=== PATIENT | female | born 1990 | race Caucasian/White ===

== ENCOUNTER 2024-06-11 18:45 | Emergency (ER) | payer OTHER, SELFPAY ==
[2024-06-11] VITALS (13 sets, daily range): BP systolic 122–155; BP diastolic 53–86; PULSE 59–91; RESP 18; TEMP 37.1; O2SAT 85–100; BMI 25.0
[2024-06-11] MEDS: ONDANSETRON 4 MG/2 ML INJ IV (19:31)
[2024-06-11 19:35] LABS: Add Manual Diff / Slide Review NO; Basophils Absolute Auto 0 /uL (0-100); Basophils Percent Auto 0.8 % (0-2); Eosinophils Absolute Auto 200 /uL (0-450); Eosinophils Percent Auto 6.3 % (2-4); Hematocrit 25.3 % (36-46); Hemoglobin 7.7 g/dL (12.0-16.0); Lymphocytes Absolute Auto 1500 /uL (1100-4500); Lymphocytes Percent Auto 42.2 % (25-40); Mean Corpuscular HGB Conc 30.3 % (30-36); Mean Corpuscular Hemoglobin 20.4 PG (26-34); Mean Corpuscular Volume 67.4 fL (80-100); Monocytes Absolute Auto 300 /uL (0-900); Monocytes Percent Auto 7.4 % (3-14); Neutrophils Absolute Auto 1600 /uL (1500-7000); Neutrophils Percent Auto 43.3 % (50-75); Platelet Count 347 X10^3/uL (150-400); Red Blood Cell Count 3.75 X10^6/uL (4.0-5.2); Red Cell Distribution Width 18.5 % (11.6-14.8); White Blood Cell Count 3.6 X10^3/uL (4.5-11.0)
--- NOTE | 2024-06-11 19:37 | PC.NURSE ---
Pt states she does not take anything for bowel regulation. Today for the upset stomach pt had pepto around 2 pm. No relief. Pt states she tries to do all natural.
[2024-06-11 19:46] LABS: Alanine Aminotransferase 13 IU/L (<35); Albumin 3.8 g/dL (3.5-5.0); Albumin Globulin Ratio 1.4 (1.0-2.8); Alkaline Phosphatase 80 U/L (38-126); Aspartate Aminotransferase 25 IU/L (14-36); BUN Creatinine Ratio 32.6 (6-22); Bilirubin Total 0.4 mg/dL (0.2-1.3); Blood Urea Nitrogen 14 mg/dL (7-17); Calcium 8.3 mg/dL (8.4-10.2); Carbon Dioxide 24 mmol/L (22-32); Chloride 109 mmol/L (98-107); Estimated Glomerular Filt Rate > 60 mL/min (>60); Globulin 2.8 g/dL (1.7-4.1); Glucose 96 mg/dL (70-100); HEMOLYSIS < 15 (0-50); Lipase 37 U/L (23-300); Potassium 3.8 mmol/L (3.4-5.1); Sodium 138 mmol/L (137-145); Total Protein 6.6 g/dL (6.3-8.2)
[2024-06-11 19:58] LABS: Anisocytosis 1+; Hypochromasia 2+; Microcytosis 3+
[2024-06-11 19:59] LABS: Rouleaux 1+; Target Cells 1+
--- NOTE | 2024-06-11 20:20 | ED_ITS ---
HPI - Abdominal Pain General Chief Complaint: Abdominal Pain Stated Complaint: abd px, prior bowel obstruction surgeries Time Seen by Provider: 06/11/24 19:47 Source: patient Mode of arrival: Ambulatory History of Present Illness HPI narrative: 34-year-old female complains of central abdominal pain for the last 2 days, last bowel movement 2 days ago. No black or red stools. History of prior bowel obstructions. She believes she had bowel obstruction 2020 diagnosed at [facility], some surgical resection, unclear diagnosis, does not think it was Crohn's disease, no cancers. 2021 had bowel surgery 2 [facility]. 2022 had another bowel surgery to [facility]. She has also had gastric bypass surgery 2014 for with [place]. Abdominoplasty surgery [facility] subsequent to that. She still has her gallbladder and has still has her appendix, has her ovaries and uterus. She believes that she has 2 ft of bowel remaining, no colostomy. She has had nausea and retching, no emesis. No black or red stools. She denies painful urination or frequency of urination. No history of prior kidney stones. No vaginal bleeding. She does recall having history of anemia with hemoglobin down to 4 in the past, has had transfusions in the past, unclear if this is related to GI losses or vaginal bleeding, she has had prior remote transfusion when her hemoglobin is less than 7. No recent injury or trauma or new activities. No recent exposure to antibiotics. No recent personal travel. Related Data Previous Rx's Medication Instructions Recorded omeprazole 20 mg capsule,delayed 20 mg PO DAILY upper abdominal 06/11/24 release pain 30 days #30 caps oxycodone-acetaminophen 5 mg-325 1 tab PO Q6H PRN pain #15 tabs 06/11/24 mg tablet Allergies Allergy/AdvReac Type Severity Reaction Status Date / Time fentanyl AdvReac Unknown Verified 06/11/24 22:06 hydromorphone [From Dilaudid] AdvReac Unknown Verified 06/11/24 22:06 Review of Systems Review of Systems Narrative: see HPI Patient History Social History Smoking Status: Current every day smoker Smoking Status: Current every day smoker tobacco type: cigarettes alcohol intake frequency: a few times a week Substance Use Type: former substance user Exam Narrative Exam Narrative: GENERAL: Well-developed patient, in mild distress. HEAD: Atraumatic. Normocephalic. EYES: Pupils equal round and reactive. Extraocular motions intact. No scleral icterus. No injection or drainage. ENT: Nose without bleeding, purulent drainage. Throat without erythema, tonsillar hypertrophy or exudate. Airway patent. NECK: Trachea midline. Non tender CARDIOVASCULAR: Regular rate and rhythm without murmurs, gallops, or rubs. RESPIRATORY: Clear to auscultation. Breath sounds equal bilaterally. No wheezes, rales, or rhonchi. GASTROINTESTINAL: Well-healed scars, nondistended, no obvious incisional hernia. Some periumbilical tenderness, right lower quadrant tenderness, no guarding or rebound. EXTREMITIES: No edema or joint tenderness. BACK: Nontender without deformity or crepitance. No flank tenderness. NEURO: AOx3. Motor function grossly nonfocal SKIN: No rash or erythema of visible areas Initial Vital Signs Initial Vital Signs: Vital Signs Temperature 98.8 F 06/11/24 18:54 Pulse Rate 91 H 06/11/24 18:54 Respiratory Rate 18 06/11/24 18:54 Blood Pressure 154/68 H 06/11/24 18:54 Pulse Oximetry 95 06/11/24 18:54 Oxygen Delivery Method Room Air 06/11/24 18:54 Course Orders Ordered: ED Orders 06/11/24 19:22 Complete Blood Count AUTO DIFF Stat Comprehensive Metabolic Panel Stat HCG Quantitative /Beta subunit Stat Lipase Stat 06/11/24 21:02 CT abdomen pelvis w con Stat Discontinued Medications Hydromorphone HCl (Hydromorphone 0.5 Mg Inj) 0.5 mg IV NOW ONE Stop: 06/11/24 20:18 Last Admin: 06/11/24 20:23 Dose: 0.5 mg Documented By: Ketorolac Tromethamine (Ketorolac 30 Mg/Ml Vial) 15 mg IV NOW ONE Stop: 06/11/24 23:26 Last Admin: 06/11/24 23:39 Dose: Not Given Documented By: Ondansetron HCl (Ondansetron 4 Mg/2 Ml Inj) 4 mg IV NOW PRN PRN Reason: Nausea And Vomiting Last Admin: 06/11/24 19:31 Dose: 4 mg Documented By: Ondansetron HCl (Ondansetron 4 Mg Odt) 4 mg PO NOW PRN PRN Reason: Nausea And Vomiting Oxycodone/Acetaminophen (Oxycodone/Apap 5/325 Prepack) 1 bottle MISC DIRECTED ONE Stop: 06/11/24 23:44 Last Admin: 06/11/24 23:47 Dose: 1 bottle Documented By: AB Vital Signs Vital signs: Vital Signs - 8 hr 06/11/24 18:54 06/11/24 19:15 06/11/24 19:18 Temperature 98.8 F Pulse Rate 91 H 82 Respiratory Rate 18 Blood Pressure 154/68 H 130/73 Pulse Oximetry 95 99 Oxygen Delivery Method Room Air 06/11/24 19:18 06/11/24 19:30 06/11/24 19:30 Temperature Pulse Rate 80 75 Respiratory Rate Blood Pressure 129/75 Pulse Oximetry 100 99 Oxygen Delivery Method Room Air 06/11/24 20:00 06/11/24 20:00 06/11/24 21:37 Temperature Pulse Rate 76 59 L Respiratory Rate Blood Pressure 122/59 L Pulse Oximetry 95 85 L Oxygen Delivery Method 06/11/24 21:39 06/11/24 21:39 06/11/24 22:00 Temperature Pulse Rate 85 Respiratory Rate Blood Pressure 137/74 128/86 Pulse Oximetry 97 Oxygen Delivery Method 06/11/24 22:00 06/11/24 22:30 06/11/24 22:31 Temperature Pulse Rate 73 72 Respiratory Rate Blood Pressure 150/53 H Pulse Oximetry 96 96 Oxygen Delivery Method 06/11/24 22:31 06/11/24 23:00 06/11/24 23:00 Temperature Pulse Rate 77 68 Respiratory Rate Blood Pressure 140/74 Pulse Oximetry 96 96 Oxygen Delivery Method Room Air 06/11/24 23:47 06/11/24 23:48 Temperature Pulse Rate Respiratory Rate Blood Pressure 155/72 H Pulse Oximetry 99 Oxygen Delivery Method Room Air MDM - Abdominal Pain Lab Data Attestation: I reviewed the patient's lab results. 06/11/24 19:22 06/11/24 19:22 Labs: Lab Results 06/11/24 Range/Units 19:22 WBC 3.6 L (4.5-11.0) X10^3/uL RBC 3.75 L (4.0-5.2) X10^6/uL Hgb 7.7 L (12.0-16.0) g/dL Hct 25.3 L (36-46) % MCV 67.4 L (80-100) fL MCH 20.4 L (26-34) PG MCHC 30.3 (30-36) % RDW 18.5 H (11.6-14.8) % Plt Count 347 (150-400) X10^3/uL Neut % (Auto) 43.3 L (50-75) % Lymph % (Auto) 42.2 H (25-40) % [place] % (Auto) 7.4 (3-14) % Eos % (Auto) 6.3 H (2-4) % Baso % (Auto) 0.8 (0-2) % Neut # (Auto) 1600 (5182-5296) /uL Lymph # (Auto) 1500 (7253-5157) /uL [place] # (Auto) 300 (0-900) /uL Eos # (Auto) 200 (0-450) /uL Baso # (Auto) 0 (0-100) /uL RBC Morphology See below Hypochromasia 2+ H Anisocytosis 1+ H Microcytosis 3+ H Target Cells 1+ H Rouleaux 1+ H Sodium 138 (137-145) mmol/L Potassium 3.8 (3.4-5.1) mmol/L Chloride 109 H (98-107) mmol/L Carbon Dioxide 24 (22-32) mmol/L BUN 14 (7-17) mg/dL Creatinine 0.43 L (0.52-1.04) mg/dL Estimated GFR > 60 (>60) mL/min BUN/Creatinine Ratio 32.6 H (6-22) Glucose 96 (70-100) mg/dL Calcium 8.3 L (8.4-10.2) mg/dL Total Bilirubin 0.4 (0.2-1.3) mg/dL AST 25 (14-36) IU/L ALT 13 (<35) IU/L Alkaline Phosphatase 80 (38-126) U/L Total Protein 6.6 (6.3-8.2) g/dL Albumin 3.8 (3.5-5.0) g/dL Globulin 2.8 (1.7-4.1) g/dL Albumin/Globulin Ratio 1.4 (1.0-2.8) Lipase 37 (23-300) U/L HCG, Quant < 2.39 mIU/mL Imaging Data CT scan - abdomen/pelvis: Radiologist's Impression: [address] [address] [address] Scan Report Signed Patient: Key Douglass MR#: [id number] : 1990 Acct:[id number] Age/Sex: 34 / F Date of Service: 06/11/24 Loc: ED Accession Number: [id number] Procedure: CT abdomen pelvis w con Ordering Provider: Leoncio Whitney MD PROCEDURE: CT ABDOMEN PELVIS W CON INDICATIONS: abd pain, hx multiple bowel obst TECHNIQUE: After the administration of intravenous contrast, axial sections acquired from the lung bases to the pubic symphysis. Coronal and sagittal reformats were performed. For radiation dose reduction, the following was used: automated exposure control, adjustment of mA and/or kV according to patient size. COMPARISON: None. FINDINGS: Image quality: Diagnostic Lower chest: Lung bases are unremarkable. Mild distal esophageal wall thickening, nonspecific. Partially seen breast implants Liver: Hepatomegaly. No solid hepatic lesion identified Gallbladder and biliary system: Unremarkable, nondilated Pancreas: Mildly dilated pancreatic duct at the head neck measuring 4-5 mm Spleen: Borderline enlarged at 13 to 14 cm Adrenals: No discrete nodules Kidneys: No solid mass. Subcentimeter lesions are too small to characterize, usually cysts. Vessels and lymph nodes: The main portal vein appears patent. No abdominal aortic aneurysm. No pathologic lymph nodes by size criteria. Bowel and peritoneum: Multiple bowel suture lines. Bypass changes. There is moderate fecal loading. No pathologic free fluid. Mildly distended fluid-filled distal loops of small bowel, measuring up to 3.1 cm. Body wall: Postsurgical changes Pelvis: Bladder is under distended, not well evaluated. Suspect malpositioned IUD. Bones: Unremarkable IMPRESSION: Mildly distended distal loops of small bowel filled with fluid, probably ileus and enteritis. Partial/early obstruction is less likely but can appear similar. Yvew-vg-hcemjben fecal loading. Multiple bowel suture lines and bypass changes. Mildly dilated pancreatic duct at 4-5 mm, without discrete mass. Given patient's young age however, consider nonurgent follow-up with pancreas MRI. Mild distal esophageal wall thickening, possibly esophagitis. Endoscopy could further evaluate if needed. Suspect malpositioned IUD. Dictated by: Kiran Fish M.D. on 06/11/2024 at 22:24 Approved by: Kiran Fish M.D. on 06/11/2024 at 22:30 [facility] Narrative Medical decision making narrative: 34-year-old female with multiple previous abdominal surgeries, and bowel obstructions, bowel resection, unclear unifying diagnosis, denies Crohn's disease or inflammatory bowel disease, no bowel cancers, also has history of gastric bypass and abdominoplasty surgeries, still has her appendix and gallbladder, with 2 days duration of abdominal pain predominantly periumbilical and right lower quadrant. Afebrile on triage, some tenderness periumbilical and right lower quadrant, no guarding or rebound tenderness or distention obvious. Labs pending. White blood cell count 3600, hemoglobin 7.7 low, patient has history of transfusions in the past for low hemoglobin. No prior comparison studies here. Liver functions and lipase tests normal. Urine test pending. Anticipate CT abdomen and pelvis imaging if hCG negative. HCG negative, CT abdomen and pelvis imaging ordered, IV opiate pain medication given, patient requesting further pain medications, intermittently seeming distress but then send me not distress when giving history CT abdomen and pelvis shows numerous abnormalities, see radiology report. Dilated loops of small bowel with fluid, likely ileus and enteritis, seemed less likely bowel obstruction but could be early/partial. Moderate to mild fecal load also noted. Mildly dilated pancreatic duct also noted, consider MRI. Mild distal esophageal wall thickening, possible esophagitis. Malpositioned IUD mentioned. Copy of report given to patient She would like to be discharged, just chooses not want to stay for MRI abdomen and pelvis in the morning. She does not want to be further admitted evaluated for possible early bowel obstruction. She would like pain medication for discharge, has had oxycodone in the past, home pack given, prescription given. Follow up Friday morning with her PCP advised. Also consider GI consultation. Regarding malpositioned IUD consider gynecology consultation. Consider upper endoscopy given esophageal wall thickening. Consider trial of laxative. She declined Toradol when offered, says that she can not take this as it bothersome stomach. Follow up with PCP advised Friday. Return precautions discussed. Critical Care Time Critical Care Time Total Critical Care Time: 31 Attestation: The high probability of a clinically significant, sudden or life threatening deterioration of the [abdominopelvic, genitourinary, gastrointestinal] system(s) required my full and direct attention, intervention and personal management. The aggregate critical care time was [31] minutes. This time is in addition to time spent performing reported procedures but includes the following: [x] Data Review and interpretation [x] Patient assessment and monitoring of vital signs [x] Documentation [x] Medication orders and management Discharge Plan Departure Patient Disposition: Home Clinical Impression: Abdominal pain, Constipation, Esophagitis, Abnormality of pancreatic duct, Enteritis, Hx of intestinal obstruction, Malpositioned IUD Activity Restrictions/Additional Instructions: History of numerous prior abdominal surgeries, including prior intestinal blockages by your report, in multiple other states, having recently moved to [facility], abdominal pain again today, last bowel movement 2 days ago. Screening labs showed low hemoglobin, history of prior blood transfusion with lower hemoglobin noted, no recent black or red stools, no significant recent reported vaginal bleeding. No comparison labs available here now. CT scanning was performed of the abdomen and pelvis, numerous abnormalities were noted of unclear significance. There were mildly dilated distal loops of small bowel with fluid, likely ileus and enteritis per Radiology report. Consider early or partial bowel obstruction though the radiologist thought this was less likely but can appear this way early in the course. No overt obstruction at this time. Rkqe-cx-hjuocxqh constipation described. Mildly dilated pancreatic duct 4-5 mm noted without any discrete mass, consider MRI imaging not available now, you declined to stay for imaging that could be scheduled tomorrow, consider outpatient imaging. Distal esophagus wall thickening, possible esophagitis, consider use of bclq-skz-peydqzg antacids if not already taken them. He requested to go home, declined further evaluation here at this time. Malpositioned IUD mentioned on the CT report as well, apparently or aware of this already, unclear if this is related to your current pain at all. Follow up with Gynecology for this problem. You requested pain medications for discharge, have history of intolerance to Dilaudid and fentanyl pain medications. Oxycodone/acetaminophen home pack provided, prescription oxycodone/acetaminophen sent to your pharmacy. Follow up with your primary care provider advised on Friday after this weekend, consider referral for GI consultation. Contact information for local general surgery also provided, although there is no road service locksmith on staff here currently. Follow up for MRI regarding pancreatic abnormality as an outpatient. Consider upper endoscopy to evaluate esophagus. Regarding possible constipation component of symptoms, consider fpoi-jdl-ksofaiz liquid MiraLax or magnesium citrate stool softening agents. Return to this/nearest emergency department for any change worsening symptoms or any concerns prior Prescriptions: New oxycodone-acetaminophen 5-325 mg tablet 1 tab PO Q6H PRN (Reason: pain) Qty: 15 0RF omeprazole 20 mg capsule,delayed release(DR/EC) 20 mg PO DAILY 30 Days Qty: 30 0RF Referrals: Bi Borjas MD [Physician] - Provider,Whitley BETANCOURT [Primary Care Provider] - Jacinto Burch MD [Physician] - Stand Alone Forms: Patient Portal/API
[2024-06-11] MEDS: HYDROMORPHONE 0.5 MG INJ IV (20:23)
[2024-06-11 20:50] LABS: HCG Quantitative /Beta subunit < 2.39 mIU/mL
--- NOTE | 2024-06-11 20:53 | PC.NURSE ---
Pt reports no change in pain, however on arrival to room pt up and out of bed going through drawers in the exam room. Pt asked if she needed help with anything, pt denies.
--- NOTE | 2024-06-11 21:02 | DI.CT.S_ITS ---
PROCEDURE: CT ABDOMEN PELVIS W CON INDICATIONS: abd pain, hx multiple bowel obst TECHNIQUE: After the administration of intravenous contrast, axial sections acquired from the lung bases to the pubic symphysis. Coronal and sagittal reformats were performed. For radiation dose reduction, the following was used: automated exposure control, adjustment of mA and/or kV according to patient size. COMPARISON: None. FINDINGS: Image quality: Diagnostic Lower chest: Lung bases are unremarkable. Mild distal esophageal wall thickening, nonspecific. Partially seen breast implants Liver: Hepatomegaly. No solid hepatic lesion identified Gallbladder and biliary system: Unremarkable, nondilated Pancreas: Mildly dilated pancreatic duct at the head neck measuring 4-5 mm Spleen: Borderline enlarged at 13 to 14 cm Adrenals: No discrete nodules Kidneys: No solid mass. Subcentimeter lesions are too small to characterize, usually cysts. Vessels and lymph nodes: The main portal vein appears patent. No abdominal aortic aneurysm. No pathologic lymph nodes by size criteria. Bowel and peritoneum: Multiple bowel suture lines. Bypass changes. There is moderate fecal loading. No pathologic free fluid. Mildly distended fluid-filled distal loops of small bowel, measuring up to 3.1 cm. Body wall: Postsurgical changes Pelvis: Bladder is under distended, not well evaluated. Suspect malpositioned IUD. Bones: Unremarkable IMPRESSION: Mildly distended distal loops of small bowel filled with fluid, probably ileus and enteritis. Partial/early obstruction is less likely but can appear similar. Lqev-tz-emvcwlfk fecal loading. Multiple bowel suture lines and bypass changes. Mildly dilated pancreatic duct at 4-5 mm, without discrete mass. Given patient's young age however, consider nonurgent follow-up with pancreas MRI. Mild distal esophageal wall thickening, possibly esophagitis. Endoscopy could further evaluate if needed. Suspect malpositioned IUD. Dictated by: Kiran Fish M.D. on 06/11/2024 at 22:24 Approved by: Kiran Fish M.D. on 06/11/2024 at 22:30
--- NOTE | 2024-06-11 23:38 | PC.NURSE ---
Pt states no change since arrival.
[2024-06-11] MEDS: OXYCODONE/APAP 5/325 PREPACK 1 BOTTLE MISC (23:47)
== END 2024-06-11 23:51 | disposition home or self-care (01) ==
PROVIDERS: Emergency Provider Emergency Medicine
DX: R10.9 Unspecified abdominal pain (principal); K59.00 Constipation, unspecified; K20.90 Esophagitis, unspecified without bleeding; K52.9 Noninfective gastroenteritis and colitis, unspecified; T83.32XA Displacement of intrauterine contraceptive device, initial encounter; Q45.3 Other congenital malformations of pancreas and pancreatic duct; Z87.19 Personal history of other diseases of the digestive system
CPT/HCPCS: 36415; 74177; 80053; 83690; 84702; 85025; 96374; 96375; 99284; J1170; J2405; Q9967

== ENCOUNTER 2024-07-07 17:31 | Emergency (ER) | payer OTHER, SELFPAY ==
[2024-07-07] VITALS (13 sets, daily range): BP systolic 104–119; BP diastolic 53–73; PULSE 67–91; RESP 18–22; TEMP 36.9; O2SAT 93–100; BMI 25.0
--- NOTE | 2024-07-07 18:20 | DI.CT.S_ITS ---
PROCEDURE: CT ABDOMEN PELVIS W CON INDICATIONS: R sided abd pain hx of sbo TECHNIQUE: After the administration of intravenous contrast, axial sections acquired from the lung bases to the pubic symphysis. Coronal and sagittal reformats were performed. For radiation dose reduction, the following was used: automated exposure control, adjustment of mA and/or kV according to patient size. COMPARISON: [facility], CT, CT ABDOMEN PELVIS W CON, 06/11/2024, 21:27. FINDINGS: Image quality: Diagnostic; limited evaluation of the bowel due to the paucity of intra-abdominal fat. Peritoneum: No pneumoperitoneum or ascites. Bones: No acute osseous abnormality. Lower Chest: No acute abnormality. Liver: Normal in size and contour. Mild hepatic hypoattenuation relative to the spleen. Gallbladder: No stones or pericholecystic fluid. Biliary tree: No intrahepatic or extrahepatic biliary ductal dilatation. Pancreas: Within normal limits. Spleen: Borderline splenomegaly up to 12.7 cm in the craniocaudal dimension (). Kidneys: No hydronephrosis or obstructive urolithiasis. Adrenals: No adrenal nodularity. Bladder: Normal in size and wall thickness. : Malpositioned T-shaped intrauterine device in anteverted uterus (-64) Stomach: Distal esophageal mural thickening. Status post prior Keturah-en-Y gastric bypass. Bowel: Normal in diameter without any bowel obstruction. Appendix not identified. No secondary signs of acute appendicitis. Multiple entero-enteric anastomotic sutures Lymph Nodes: No retroperitoneal, mesenteric, or inguinal lymphadenopathy. Vascular: No abdominal aortic aneurysm. The visualized arterial vasculature is patent. Soft Tissues: No acute abnormality. IMPRESSION: 1. Status post prior Keturah-en-Y gastric bypass and small-bowel surgery without small bowel obstruction. 2. Nonvisualization of the appendix without secondary signs of acute appendicitis. 3. Hepatic steatosis versus underlying hepatocellular disease. 4. Distal mural esophageal thickening, which can be seen with esophagitis. 5. Likely malposition intrauterine device. Dictated by: Beny Givens M.D. on 07/07/2024 at 22:11 Approved by: Beny Givens M.D. on 07/07/2024 at 22:26
--- NOTE | 2024-07-07 19:48 | PC.NURSE ---
This RN was asked to bring this patient into the emergency department room four and place them on monitor. This RN exited the Emergency Department triage room and called out for patient name. This RN didn't see the patient stand but saw patient in process of falling and hitting the floor. Patient was in front of the emergency department doors between rooms 5 and 6. This RN approached patient and opened the emergency room doors and yelled for help. This RN touched patient shoulder and asked if patient was okay while calling her name. Patient identified self and states that her head hurts. This RN asked patient if her head hurt prior to the fall and patient said Yes, but my abdomen hurts so much. PHYS ASST went to the front and secured a wheelchair for the patient. Two additional RN and an additional PHYS ASST responded. all responded to patient side. Patient stated that they felt they could stand. Patient stood with standby assist and went into the chair. Provider Dilan immediately informed of fall.
[2024-07-07] MEDS: PANTOPRAZOLE 40 MG VIAL IV (19:56)
[2024-07-07] MEDS: ONDANSETRON 4 MG/2 ML INJ IV ×2 (20:02→23:00)
[2024-07-07 20:04] LABS: Add Manual Diff / Slide Review SLIDE REVIEW; Basophils Absolute Auto 0 /uL (0-100); Basophils Percent Auto 0.8 % (0-2); Eosinophils Absolute Auto 300 /uL (0-450); Eosinophils Percent Auto 7.2 % (2-4); Hematocrit 29.7 % (36-46); Hemoglobin 8.9 g/dL (12.0-16.0); Lymphocytes Absolute Auto 1600 /uL (1100-4500); Lymphocytes Percent Auto 42.4 % (25-40); Mean Corpuscular HGB Conc 29.9 % (30-36); Mean Corpuscular Hemoglobin 20.4 PG (26-34); Mean Corpuscular Volume 68.1 fL (80-100); Monocytes Absolute Auto 400 /uL (0-900); Neutrophils Absolute Auto 1500 /uL (1500-7000); Neutrophils Percent Auto 38.6 % (50-75); Platelet Count 361 X10^3/uL (150-400); Red Blood Cell Count 4.36 X10^6/uL (4.0-5.2); Red Cell Distribution Width 18.9 % (11.6-14.8); White Blood Cell Count 3.8 X10^3/uL (4.5-11.0)
[2024-07-07 20:32] LABS: Alanine Aminotransferase 15 IU/L (<35); Albumin 4.3 g/dL (3.5-5.0); Albumin Globulin Ratio 1.6 (1.0-2.8); Alkaline Phosphatase 65 U/L (38-126); Aspartate Aminotransferase 26 IU/L (14-36); BUN Creatinine Ratio 25.5 (6-22); Bilirubin Total 0.3 mg/dL (0.2-1.3); Blood Urea Nitrogen 13 mg/dL (7-17); Calcium 8.9 mg/dL (8.4-10.2); Carbon Dioxide 25 mmol/L (22-32); Chloride 108 mmol/L (98-107); Estimated Glomerular Filt Rate > 60 mL/min (>60); Globulin 2.7 g/dL (1.7-4.1); Glucose 91 mg/dL (70-100); HEMOLYSIS < 15 (0-50); Lipase 59 U/L (23-300); Potassium 3.9 mmol/L (3.4-5.1); Sodium 141 mmol/L (137-145)
[2024-07-07 20:45] LABS: Anisocytosis 2+; Hypochromasia 2+; Microcytosis 3+
--- NOTE | 2024-07-07 20:55 | PC.NURSE ---
called requesting updaye. Pt refuses to let staff give updates.
--- NOTE | 2024-07-07 21:08 | ED.GENADULT ---
HPI - General Adult General Chief complaint: Abdominal Pain Stated complaint: gastro issues, abd px and lower rt side Time Seen by Provider: 07/07/24 19:26 Source: patient Mode of arrival: Ambulatory History of Present Illness HPI narrative: Patient is a 34-year-old female. History of Keturah-en-Y gastric bypass. Has also had multiple abdominal surgeries after this secondary to bowel obstructions. She also has a history of alcohol abuse. Drinks on a daily basis. Has been drinking more recently because of increased stressors at home. She did drink more vodka today then baseline for her per her report. She was here for evaluation of approximately 3 days of right-sided abdominal pain that she states feels very similar to her prior history of obstructions. Is also having nausea. No change in bowel habits. No urinary symptoms. No chest pain or shortness of breath. Related Data Previous Rx's Medication Instructions Recorded omeprazole 20 mg capsule,delayed 20 mg PO DAILY upper abdominal 06/11/24 release pain 30 days #30 caps oxycodone-acetaminophen 5 mg-325 1 tab PO Q6H PRN pain #15 tabs 06/11/24 mg tablet sucralfate 100 mg/mL oral 10 ml PO QACHS #414 mL 07/07/24 suspension (Carafate) Allergies Allergy/AdvReac Type Severity Reaction Status Date / Time fentanyl AdvReac Unknown Verified 06/11/24 22:06 hydromorphone [From Dilaudid] AdvReac Unknown Verified 06/11/24 22:06 Review of Systems Review of Systems Narrative: See HPI Patient History Social History Smoking Status: Current every day smoker Smoking Status: Current every day smoker tobacco type: cigarettes alcohol intake frequency: a few times a week Substance Use Type: former substance user Exam Initial Vital Signs Initial Vital Signs: Vital Signs Temperature 98.4 F 07/07/24 17:34 Pulse Rate 89 07/07/24 17:34 Respiratory Rate 20 07/07/24 17:34 Blood Pressure 118/73 07/07/24 17:34 Pulse Oximetry 99 07/07/24 17:34 Oxygen Delivery Method Room Air 07/07/24 17:34 Const General: cooperative and No ill appearing HENMT Head: normal to inspection and normocephalic Resp Effort & Inspection: normal respiratory effort Auscultation: clear to auscultation bilaterally Cardio Rate: regular rate Rhythm: regular rhythm GI Inspection: non-distended Palpation: soft, No firm, No guarding and tender Skin Other: Well-healed surgical scars in the abdomen is consistent with her stated surgical history Extrem General: normal to inspection and capillary refill normal Course Orders Ordered: ED Orders 07/07/24 18:20 CT abdomen pelvis w con Stat 07/07/24 19:51 Complete Blood Count AUTO DIFF Stat Comprehensive Metabolic Panel Stat Lipase Stat Discontinued Medications Ketorolac Tromethamine (Ketorolac 30 Mg/Ml Vial) 15 mg IV NOW ONE Stop: 07/07/24 22:51 Last Admin: 07/07/24 23:00 Dose: 15 mg Documented By: LENORE Morphine Sulfate (Morphine 4 Mg/Ml Inj) 4 mg IV NOW ONE Stop: 07/07/24 21:10 Last Admin: 07/07/24 21:19 Dose: 4 mg Documented By: LENORE Ondansetron HCl (Ondansetron 4 Mg/2 Ml Inj) 4 mg IV NOW PRN PRN Reason: Nausea And Vomiting Last Admin: 07/07/24 20:02 Dose: 4 mg Documented By: LENORE Ondansetron HCl (Ondansetron 4 Mg Odt) 4 mg PO NOW PRN PRN Reason: Nausea And Vomiting Ondansetron HCl (Ondansetron 4 Mg/2 Ml Inj) 4 mg IV NOW ONE Stop: 07/07/24 22:51 Last Admin: 07/07/24 23:00 Dose: 4 mg Documented By: LENORE Ondansetron HCl (Ondansetron 4 Mg Odt Prepack) 1 bottle MISC DIRECTED ONE Stop: 07/07/24 22:51 Last Admin: 07/07/24 23:01 Dose: 1 bottle Documented By: LENORE Pantoprazole Sodium (Pantoprazole 40 Mg Vial) 40 mg IV NOW ONE Stop: 07/07/24 18:21 Last Admin: 07/07/24 19:56 Dose: 40 mg Documented By: LENORE Vital Signs Vital signs: Vital Signs - 8 hr 07/07/24 19:26 07/07/24 19:30 07/07/24 19:30 Pulse Rate 83 78 Respiratory Rate Blood Pressure 115/57 L Pulse Oximetry 98 93 Oxygen Delivery Method 07/07/24 20:00 07/07/24 20:01 07/07/24 20:01 Pulse Rate 81 75 Respiratory Rate 22 20 Blood Pressure 117/58 L Pulse Oximetry 100 100 Oxygen Delivery Method Room Air Room Air 07/07/24 20:30 07/07/24 20:31 07/07/24 20:31 Pulse Rate 71 72 Respiratory Rate Blood Pressure 104/53 L Pulse Oximetry 99 98 Oxygen Delivery Method 07/07/24 21:00 07/07/24 21:01 07/07/24 21:01 Pulse Rate 78 80 Respiratory Rate Blood Pressure 106/60 Pulse Oximetry 98 98 Oxygen Delivery Method 07/07/24 21:35 07/07/24 21:36 07/07/24 21:36 Pulse Rate 90 91 H Respiratory Rate 18 Blood Pressure 118/57 L Pulse Oximetry 100 98 Oxygen Delivery Method 07/07/24 22:00 07/07/24 22:00 07/07/24 22:30 Pulse Rate 67 Respiratory Rate Blood Pressure 119/54 L 119/58 L Pulse Oximetry 97 Oxygen Delivery Method 07/07/24 22:30 Pulse Rate 67 Respiratory Rate Blood Pressure Pulse Oximetry 96 Oxygen Delivery Method Medical Decision Making Medical Records Medical records reviewed: Yes I reviewed the patient's medical records. Lab Data Lab results reviewed: Yes I reviewed the patient's lab results. 07/07/24 19:51 07/07/24 19:51 Labs: Lab Results 07/07/24 Range/Units 19:51 WBC 3.8 L (4.5-11.0) X10^3/uL RBC 4.36 (4.0-5.2) X10^6/uL Hgb 8.9 L (12.0-16.0) g/dL Hct 29.7 L (36-46) % MCV 68.1 L (80-100) fL MCH 20.4 L (26-34) PG MCHC 29.9 L (30-36) % RDW 18.9 H (11.6-14.8) % Plt Count 361 (150-400) X10^3/uL Neut % (Auto) 38.6 L (50-75) % Lymph % (Auto) 42.4 H (25-40) % [place] % (Auto) 11.0 (3-14) % Eos % (Auto) 7.2 H (2-4) % Baso % (Auto) 0.8 (0-2) % Neut # (Auto) 1500 (1901-4696) /uL Lymph # (Auto) 1600 (9839-4053) /uL [place] # (Auto) 400 (0-900) /uL Eos # (Auto) 300 (0-450) /uL Baso # (Auto) 0 (0-100) /uL RBC Morphology See below Hypochromasia 2+ H Anisocytosis 2+ H Microcytosis 3+ H Sodium 141 (137-145) mmol/L Potassium 3.9 (3.4-5.1) mmol/L Chloride 108 H (98-107) mmol/L Carbon Dioxide 25 (22-32) mmol/L BUN 13 (7-17) mg/dL Creatinine 0.51 L (0.52-1.04) mg/dL Estimated GFR > 60 (>60) mL/min BUN/Creatinine Ratio 25.5 H (6-22) Glucose 91 (70-100) mg/dL Calcium 8.9 (8.4-10.2) mg/dL Total Bilirubin 0.3 (0.2-1.3) mg/dL AST 26 (14-36) IU/L ALT 15 (<35) IU/L Alkaline Phosphatase 65 (38-126) U/L Total Protein 7.0 (6.3-8.2) g/dL Albumin 4.3 (3.5-5.0) g/dL Globulin 2.7 (1.7-4.1) g/dL Albumin/Globulin Ratio 1.6 (1.0-2.8) Lipase 59 (23-300) U/L Point of Care Testing Test Results Negative Urine Dip Bedside Urine Glucose Negative Bedside Urine Bilirubin - Negative Bedside Urine Ketone - Negative Urine Specific [place] 1.02 Bedside Urine Occult Blood - Negative Bedside Urine pH 6 Bedside Urine Protein - Negative Bedside Urine Urobilinogen - Negative Bedside Urine Nitrite - Negative Bedside Urine Leukocytes - Negative Esterase Point of care testing: Point of Care Testing Test Results Negative Urine Dip Bedside Urine Glucose Negative Bedside Urine Bilirubin - Negative Bedside Urine Ketone - Negative Urine Specific [place] 1.02 Bedside Urine Occult Blood - Negative Bedside Urine pH 6 Bedside Urine Protein - Negative Bedside Urine Urobilinogen - Negative Bedside Urine Nitrite - Negative Bedside Urine Leukocytes - Negative Esterase Imaging Data CT scan - abdomen/pelvis: Radiologist's Impression: PROCEDURE: CT ABDOMEN PELVIS W CON INDICATIONS: R sided abd pain hx of sbo TECHNIQUE: After the administration of intravenous contrast, axial sections acquired from the lung bases to the pubic symphysis. Coronal and sagittal reformats were performed. For radiation dose reduction, the following was used: automated exposure control, adjustment of mA and/or kV according to patient size. COMPARISON: [facility], CT, CT ABDOMEN PELVIS W CON, 06/11/2024, 21:27. FINDINGS: Image quality: Diagnostic; limited evaluation of the bowel due to the paucity of intra-abdominal fat. Peritoneum: No pneumoperitoneum or ascites. Bones: No acute osseous abnormality. Lower Chest: No acute abnormality. Liver: Normal in size and contour. Mild hepatic hypoattenuation relative to the spleen. Gallbladder: No stones or pericholecystic fluid. Biliary tree: No intrahepatic or extrahepatic biliary ductal dilatation. Pancreas: Within normal limits. Spleen: Borderline splenomegaly up to 12.7 cm in the craniocaudal dimension (). Kidneys: No hydronephrosis or obstructive urolithiasis. Adrenals: No adrenal nodularity. Bladder: Normal in size and wall thickness. : Malpositioned T-shaped intrauterine device in anteverted uterus (-64) Stomach: Distal esophageal mural thickening. Status post prior Keturah-en-Y gastric bypass. Bowel: Normal in diameter without any bowel obstruction. Appendix not identified. No secondary signs of acute appendicitis. Multiple entero-enteric anastomotic sutures Lymph Nodes: No retroperitoneal, mesenteric, or inguinal lymphadenopathy. Vascular: No abdominal aortic aneurysm. The visualized arterial vasculature is patent. Soft Tissues: No acute abnormality. IMPRESSION: 1. Status post prior Keturah-en-Y gastric bypass and small-bowel surgery without small bowel obstruction. 2. Nonvisualization of the appendix without secondary signs of acute appendicitis. 3. Hepatic steatosis versus underlying hepatocellular disease. 4. Distal mural esophageal thickening, which can be seen with esophagitis. 5. Likely malposition intrauterine device. MDM Narrative Medical decision making narrative: CT scan shows no signs of a bowel obstruction. Her labs are unremarkable. I suspect a degree of gastritis given the amount of alcohol that she has been drinking in the nausea. No indication for surgical consultation or antibiotics. She was currently taking a proton pump inhibitor but will add Carafate to her medication regimen. I do suspect that she would benefit from a referral to see Gastroenterology and I advised that she talk with her primary doctor regarding her presentation today in the CT scan. No indication for admission the hospital. Recommend avoiding opioids given her clinical presentation. She was given return precautions. Discharge Plan Departure Patient Disposition: Home Clinical Impression: Gastritis, Abdominal pain Instructions: DI for Gastritis, DI for Abdominal Pain-Adult Activity Restrictions/Additional Instructions: Continue to take your omeprazole. I recommend that you take the Carafate as directed as well. You are going to need a referral to see Gastroenterology and your primary doctor can do this for you. Prescriptions: New sucralfate [Carafate] 100 mg/mL suspension 10 ml PO QACHS Qty: 414 0RF No Action oxycodone-acetaminophen 5-325 mg tablet 1 tab PO Q6H PRN (Reason: pain) Qty: 15 0RF omeprazole 20 mg capsule,delayed release(DR/EC) 20 mg PO DAILY 30 Days Qty: 30 0RF Referrals: ProviderWhitley [Primary Care Provider] - Stand Alone Forms: Patient Portal/API
[2024-07-07] MEDS: MORPHINE 4 MG/ML INJ IV (21:19)
--- NOTE | 2024-07-07 21:36 | PC.NURSE ---
Pt assisted to restroom with one person standby without difficulty or incident.
[2024-07-07] MEDS: KETOROLAC 30 MG/ML VIAL 15 MG IV (23:00)
[2024-07-07] MEDS: ONDANSETRON 4 MG ODT PREPACK 1 BOTTLE MISC (23:01)
== END 2024-07-07 23:10 | disposition home or self-care (01) ==
PROVIDERS: Student in an Organized Health Care Education/Training Program; Emergency Provider Emergency Medicine
DX: K29.70 Gastritis, unspecified, without bleeding (principal); R10.9 Unspecified abdominal pain; F10.10 Alcohol abuse, uncomplicated; R79.89 Other specified abnormal findings of blood chemistry
CPT/HCPCS: 36415; 74177; 80053; 81003; 81025; 83690; 85025; 96374; 96375; 96376; 99284; J1885; J2270; J2405; J2470; Q9967

== ENCOUNTER 2024-08-07 17:02 | Emergency (ER) | payer OTHER, SELFPAY ==
--- NOTE | 2024-08-07 17:14 | ED_ITS ---
HPI - General Adult <Sigifredo Ontiveros DO - Last Filed: 08/18/24 17:55> General Chief complaint: Altered Mental Status Stated complaint: altered mental status, poss OD on meds Time Seen by Provider: 08/07/24 17:06 Source: patient Mode of arrival: Ambulatory Limitations: other (Obvious under the influence) History of Present Illness HPI narrative: Patient is a 34-year-old female who arrives in the emergency department for evaluation of possible overdose on her medications. Patient is very tangential and difficult to obtain an exact HPI. She was here with her . She states it was ?kind of both? when asked whether or not she wanted to come to the emergency department her brought her in. She states she did have ?2 shots of vodka? this evening. Does have history of drug abuse and alcohol abuse but states she has been sober for several months on each of these. She denies taking any other drugs. Patient was very tangential with answering questions. Slurring her words to a certain extent. Mumbles in his difficult to obtain an exact history. Related Data Home Medications Medication Instructions Recorded Confirmed aripiprazole 10 mg tablet 10 mg PO DAILY 08/07/24 benztropine 1 mg tablet 1 mg PO Q12H PRN Tremor(S) 08/07/24 doxepin 50 mg capsule 100 mg PO ONCE PM PRN insomnia 08/07/24 escitalopram oxalate 10 mg tablet 10 mg PO DAILY 08/07/24 quetiapine 50 mg tablet 100 mg PO Q12H anxiety 08/07/24 Previous Rx's Medication Instructions Recorded oxycodone-acetaminophen 5 mg-325 1 tab PO Q6H PRN pain #15 tabs 06/11/24 mg tablet sucralfate 100 mg/mL oral 10 ml PO QACHS #414 mL 07/07/24 suspension (Carafate) Allergies Allergy/AdvReac Type Severity Reaction Status Date / Time fentanyl AdvReac Unknown Verified 08/07/24 17:53 hydromorphone [From Dilaudid] AdvReac Unknown Verified 08/07/24 17:53 Review of Systems <Sigifredo Ontiveros DO - Last Filed: 08/18/24 17:55> Review of Systems Narrative: See HPI Patient History <Sigifredo Ontiveros DO - Last Filed: 08/18/24 17:55> Social History Smoking Status: Current every day smoker Smoking Status: Current every day smoker tobacco type: cigarettes alcohol intake frequency: a few times a week Substance Use Type: former substance user Exam <Sigfiredo Ontiveros DO - Last Filed: 08/18/24 17:55> Initial Vital Signs Initial Vital Signs: Vital Signs Temperature 97.7 F 08/07/24 17:15 Pulse Rate 90 08/07/24 17:15 Respiratory Rate 20 08/07/24 17:15 Blood Pressure 145/78 H 08/07/24 17:15 Pulse Oximetry 100 08/07/24 17:15 Oxygen Delivery Method Room Air 08/07/24 17:15 HENMT Head: normal to inspection Resp Effort & Inspection: normal respiratory effort Cardio Rate: regular rate Neuro General: patient alert, patient awake and moves all extremities Sensory Exam: no sensory deficits noted Psych Other: Patient was very tangential, agitated, restless in the room. <Elena Lopes MD - Last Filed: 08/12/24 21:57> Initial Vital Signs Initial Vital Signs: Vital Signs Temperature 97.7 F 08/07/24 17:15 Pulse Rate 90 08/07/24 17:15 Respiratory Rate 20 08/07/24 17:15 Blood Pressure 145/78 H 08/07/24 17:15 Pulse Oximetry 100 08/07/24 17:15 Oxygen Delivery Method Room Air 08/07/24 17:15 Course <Sigifredo Ontiveros DO - Last Filed: 08/18/24 17:55> Orders Ordered: Discontinued Medications Diphenhydramine HCl (Diphenhydramine 50 Mg/Ml Vial) 50 mg IV NOW ONE Stop: 08/07/24 23:23 Last Admin: 08/07/24 23:27 Dose: 50 mg Documented By: AB Diphenhydramine HCl (Diphenhydramine 25 Mg Tablet) 50 mg PO NOW ONE Stop: 08/08/24 21:27 Last Admin: 08/08/24 21:47 Dose: 50 mg Documented By: GW Folic Acid (Folic Acid 1 Mg Tablet) 1 mg PO NOW ONE Stop: 08/08/24 07:09 Last Admin: 08/08/24 07:37 Dose: 1 mg Documented By: SPF Haloperidol (Haloperidol 5 Mg/Ml Vial) 5 mg IV NOW ONE Stop: 08/08/24 11:22 Last Admin: 08/08/24 11:26 Dose: 5 mg Documented By: MARK Thiamine HCl 200 mg/ Sodium (Chloride) 102 mls @ 408 mls/hr IV NOW ONE Stop: 08/08/24 07:11 Last Infusion: 08/08/24 08:00 Dose: Infused Documented By: Admin: 08/08/24 07:37 Dose: 408 mls/hr Documented By: MARK Acetaminophen (Ofirmev) 1,000 mg in 100 mls @ 400 mls/hr IV NOW ONE Stop: 08/08/24 08:16 Last Infusion: 08/08/24 09:01 Dose: Infused Documented By: Admin: 08/08/24 08:31 Dose: 400 mls/hr Documented By: MARK Lorazepam (Lorazepam 0.5 Mg Tablet) 2 mg PO NOW ONE Stop: 08/07/24 22:23 Last Admin: 08/07/24 22:34 Dose: 2 mg Documented By: Lorazepam (Lorazepam 2 Mg/Ml Inj) 2 mg IV NOW ONE Stop: 08/07/24 23:23 Last Admin: 08/07/24 23:27 Dose: 2 mg Documented By: Lorazepam (Lorazepam 1 Mg Tablet) 2 mg PO NOW ONE Stop: 08/08/24 09:01 Last Admin: 08/08/24 08:53 Dose: 2 mg Documented By: MARK Lorazepam (Lorazepam 2 Mg/Ml Inj) 1 mg IV NOW ONE Stop: 08/08/24 14:42 Last Admin: 08/08/24 14:48 Dose: 1 mg Documented By: HARRIETT Lorazepam (Lorazepam 2 Mg/Ml Inj) 2 mg IV NOW ONE Stop: 08/08/24 18:34 Last Admin: 08/08/24 18:43 Dose: 2 mg Documented By: HARRIETT Lorazepam (Lorazepam 0.5 Mg Tablet) 2 mg PO NOW ONE Stop: 08/09/24 06:11 Last Admin: 08/09/24 06:15 Dose: 2 mg Documented By: Multivitamins (Multivitamin 1 Tablet) 1 tab PO DAILY [facility] Last Admin: 08/08/24 08:30 Dose: 1 tab Documented By: MARK Nicotine (Nicotine 14 Patch) 14 mg TOP NOW ONE Stop: 08/07/24 21:33 Last Admin: 08/07/24 22:34 Dose: 14 mg Documented By: Nicotine (Nicotine 14 Patch) 14 mg TOP NOW ONE Stop: 08/08/24 10:23 Last Admin: 08/08/24 10:31 Dose: 14 mg Documented By: SPF Olanzapine (Olanzapine Odt 10 Mg Tab) 10 mg PO NOW ONE Stop: 08/08/24 10:23 Last Admin: 08/08/24 10:28 Dose: 10 mg Documented By: SPF Quetiapine Fumarate (Quetiapine 25 Mg Tablet) 100 mg PO NOW ONE Stop: 08/07/24 19:48 Last Admin: 08/07/24 20:05 Dose: 100 mg Documented By: Quetiapine Fumarate (Quetiapine 25 Mg Tablet) 100 mg PO NOW ONE Stop: 08/08/24 21:27 Last Admin: 08/08/24 21:46 Dose: 100 mg Documented By: HARRIETT Vital Signs Vital signs: Vital Signs - 8 hr 08/08/24 10:57 08/08/24 10:57 08/08/24 11:00 Pulse Rate 96 H 104 H Blood Pressure 128/68 Pulse Oximetry 100 95 Oxygen Delivery Method Room Air 08/08/24 13:17 08/08/24 13:30 08/08/24 14:00 Pulse Rate 74 72 Blood Pressure Pulse Oximetry 96 93 95 Oxygen Delivery Method Room Air Room Air <Elena Lopes MD - Last Filed: 08/12/24 21:57> Orders Ordered: Discontinued Medications Diphenhydramine HCl (Diphenhydramine 50 Mg/Ml Vial) 50 mg IV NOW ONE Stop: 08/07/24 23:23 Last Admin: 08/07/24 23:27 Dose: 50 mg Documented By: Diphenhydramine HCl (Diphenhydramine 25 Mg Tablet) 50 mg PO NOW ONE Stop: 08/08/24 21:27 Last Admin: 08/08/24 21:47 Dose: 50 mg Documented By: HARRIETT Folic Acid (Folic Acid 1 Mg Tablet) 1 mg PO NOW ONE Stop: 08/08/24 07:09 Last Admin: 08/08/24 07:37 Dose: 1 mg Documented By: MARK Haloperidol (Haloperidol 5 Mg/Ml Vial) 5 mg IV NOW ONE Stop: 08/08/24 11:22 Last Admin: 08/08/24 11:26 Dose: 5 mg Documented By: MARK Thiamine HCl 200 mg/ Sodium (Chloride) 102 mls @ 408 mls/hr IV NOW ONE Stop: 08/08/24 07:11 Last Infusion: 08/08/24 08:00 Dose: Infused Documented By: Admin: 08/08/24 07:37 Dose: 408 mls/hr Documented By: MARK Acetaminophen (Ofirmev) 1,000 mg in 100 mls @ 400 mls/hr IV NOW ONE Stop: 08/08/24 08:16 Last Infusion: 08/08/24 09:01 Dose: Infused Documented By: Admin: 08/08/24 08:31 Dose: 400 mls/hr Documented By: MARK Lorazepam (Lorazepam 0.5 Mg Tablet) 2 mg PO NOW ONE Stop: 08/07/24 22:23 Last Admin: 08/07/24 22:34 Dose: 2 mg Documented By: Lorazepam (Lorazepam 2 Mg/Ml Inj) 2 mg IV NOW ONE Stop: 08/07/24 23:23 Last Admin: 08/07/24 23:27 Dose: 2 mg Documented By: Lorazepam (Lorazepam 1 Mg Tablet) 2 mg PO NOW ONE Stop: 08/08/24 09:01 Last Admin: 08/08/24 08:53 Dose: 2 mg Documented By: MARK Lorazepam (Lorazepam 2 Mg/Ml Inj) 1 mg IV NOW ONE Stop: 08/08/24 14:42 Last Admin: 08/08/24 14:48 Dose: 1 mg Documented By: HARRIETT Lorazepam (Lorazepam 2 Mg/Ml Inj) 2 mg IV NOW ONE Stop: 08/08/24 18:34 Last Admin: 08/08/24 18:43 Dose: 2 mg Documented By: HARRIETT Lorazepam (Lorazepam 0.5 Mg Tablet) 2 mg PO NOW ONE Stop: 08/09/24 06:11 Last Admin: 08/09/24 06:15 Dose: 2 mg Documented By: Multivitamins (Multivitamin 1 Tablet) 1 tab PO DAILY [facility] Last Admin: 08/08/24 08:30 Dose: 1 tab Documented By: MARK Nicotine (Nicotine 14 Patch) 14 mg TOP NOW ONE Stop: 08/07/24 21:33 Last Admin: 08/07/24 22:34 Dose: 14 mg Documented By: Nicotine (Nicotine 14 Patch) 14 mg TOP NOW ONE Stop: 08/08/24 10:23 Last Admin: 08/08/24 10:31 Dose: 14 mg Documented By: SPF Olanzapine (Olanzapine Odt 10 Mg Tab) 10 mg PO NOW ONE Stop: 08/08/24 10:23 Last Admin: 08/08/24 10:28 Dose: 10 mg Documented By: SPF Quetiapine Fumarate (Quetiapine 25 Mg Tablet) 100 mg PO NOW ONE Stop: 08/07/24 19:48 Last Admin: 08/07/24 20:05 Dose: 100 mg Documented By: AB Quetiapine Fumarate (Quetiapine 25 Mg Tablet) 100 mg PO NOW ONE Stop: 08/08/24 21:27 Last Admin: 08/08/24 21:46 Dose: 100 mg Documented By: HARRIETT Vital Signs Vital signs: Vital Signs - 8 hr 08/08/24 10:57 08/08/24 10:57 08/08/24 11:00 Pulse Rate 96 H 104 H Blood Pressure 128/68 Pulse Oximetry 100 95 Oxygen Delivery Method Room Air 08/08/24 13:17 08/08/24 13:30 08/08/24 14:00 Pulse Rate 74 72 Blood Pressure Pulse Oximetry 96 93 95 Oxygen Delivery Method Room Air Room Air Medical Decision Making <Sigifredo Ontiveros, - Last Filed: 08/18/24 17:55> Lab Data 08/07/24 18:22 08/07/24 18:22 Labs: Lab Results 08/07/24 08/07/24 08/07/24 Range/Units 17:17 17:17 18:22 WBC 5.3 (4.5-11.0) X10^3/uL RBC 4.08 (4.0-5.2) X10^6/uL Hgb 8.4 L (12.0-16.0) g/dL Hct 27.9 L (36-46) % MCV 68.2 L (80-100) fL MCH 20.6 L (26-34) PG MCHC 30.1 (30-36) % RDW 18.9 H (11.6-14.8) % Plt Count 352 (150-400) X10^3/uL Neut % (Auto) 61.6 (50-75) % Lymph % (Auto) 23.8 L (25-40) % Brooks % (Auto) 9.7 (3-14) % Eos % (Auto) 4.4 H (2-4) % Baso % (Auto) 0.5 (0-2) % Neut # (Auto) 3300 (4436-6484) /uL Lymph # (Auto) 1300 (3667-4354) /uL Brooks # (Auto) 500 (0-900) /uL Eos # (Auto) 200 (0-450) /uL Baso # (Auto) 0 (0-100) /uL RBC Morphology See below Microcytosis 2+ H Sodium 138 (137-145) mmol/L Potassium 3.8 (3.4-5.1) mmol/L Chloride 108 H (98-107) mmol/L Carbon Dioxide 22 (22-32) mmol/L BUN 14 (7-17) mg/dL Creatinine 0.67 (0.52-1.04) mg/dL Estimated GFR > 60 (>60) mL/min BUN/Creatinine Ratio 20.9 (6-22) Glucose 94 (70-100) mg/dL Calcium 9.0 (8.4-10.2) mg/dL Total Bilirubin 0.4 (0.2-1.3) mg/dL AST 64 H (14-36) IU/L ALT 33 (<35) IU/L Alkaline Phosphatase 90 (38-126) U/L Ammonia (9-30) umol/L Total Protein 7.2 (6.3-8.2) g/dL Albumin 4.3 (3.5-5.0) g/dL Globulin 2.9 (1.7-4.1) g/dL Albumin/Globulin Ratio 1.5 (1.0-2.8) TSH 0.562 (0.47-4.68) uIU/mL Urine Color Yellow Urine Appearance Clear Urine pH 6.0 Normal (4.5-8.0) Ur Specific [place] <=1.005 (1.000-1.035) Urine Protein Negative (Negative) Urine Glucose (UA) Negative (Negative) g/dL Urine Ketones Negative (NEGATIVE) Urine Occult Blood Negative (Negative) Urine Nitrate Negative (Negative) Urine Bilirubin Negative (NEGATIVE) Urine Urobilinogen 0.2 (0.2) E.U./dL Ur Leukocyte Esterase Trace H (NEGATIVE) Urine RBC None seen (0-5/HPF) Urine WBC None seen (0-5/HPF) Ur Squamous Epith Cells None seen (0-5/HPF) Urine Bacteria None seen (None) Ur Culture Indicated? Cult not indicated Vol Urine Centrifuged 10ml (spun) Urine Test Negative (Negative) Salicylates < 1.0 (<20) mg/dL U Opiates 300ng/mL cut Negative (Negative) Ur Oxycodone Screen Negative (Negative) Urine Methadone Screen Negative (Negative) Acetaminophen < 10 (10-30) ug/mL Ur Barbiturates Screen Negative (Negative) U Tricyclic Antidepress Positive H (Negative) Ur Phencyclidine Scrn Negative (Negative) Ur Amphetamines Screen Negative (Negative) U Methamphetamines Scrn Negative (Negative) Ur MDMA Scrn (Ecstasy) Negative (Negative) U Benzodiazepines Scrn Positive H (Negative) Urine Cocaine Screen Negative (Negative) U Marijuana (THC) Screen Negative (Negative) Urine Specific [place] Normal (Normal) Ethyl Alcohol < 10 ( - 10) mg/dL Ur Creatinine Normal (Normal) SARS-CoV-2 (PCR) (Negative) 08/07/24 08/07/24 Range/Units 19:09 20:04 WBC (4.5-11.0) X10^3/uL RBC (4.0-5.2) X10^6/uL Hgb (12.0-16.0) g/dL Hct (36-46) % MCV (80-100) fL MCH (26-34) PG MCHC (30-36) % RDW (11.6-14.8) % Plt Count (150-400) X10^3/uL Neut % (Auto) (50-75) % Lymph % (Auto) (25-40) % Brooks % (Auto) (3-14) % Eos % (Auto) (2-4) % Baso % (Auto) (0-2) % Neut # (Auto) (4953-2562) /uL Lymph # (Auto) (7221-0161) /uL Brooks # (Auto) (0-900) /uL Eos # (Auto) (0-450) /uL Baso # (Auto) (0-100) /uL RBC Morphology Microcytosis Sodium (137-145) mmol/L Potassium (3.4-5.1) mmol/L Chloride (98-107) mmol/L Carbon Dioxide (22-32) mmol/L BUN (7-17) mg/dL Creatinine (0.52-1.04) mg/dL Estimated GFR (>60) mL/min BUN/Creatinine Ratio (6-22) Glucose (70-100) mg/dL Calcium (8.4-10.2) mg/dL Total Bilirubin (0.2-1.3) mg/dL AST (14-36) IU/L ALT (<35) IU/L Alkaline Phosphatase (38-126) U/L Ammonia < 9 L (9-30) umol/L Total Protein (6.3-8.2) g/dL Albumin (3.5-5.0) g/dL Globulin (1.7-4.1) g/dL Albumin/Globulin Ratio (1.0-2.8) TSH (0.47-4.68) uIU/mL Urine Color Urine Appearance Urine pH (4.5-8.0) Ur Specific [place] (1.000-1.035) Urine Protein (Negative) Urine Glucose (UA) (Negative) g/dL Urine Ketones (NEGATIVE) Urine Occult Blood (Negative) Urine Nitrate (Negative) Urine Bilirubin (NEGATIVE) Urine Urobilinogen (0.2) E.U./dL Ur Leukocyte Esterase (NEGATIVE) Urine RBC (0-5/HPF) Urine WBC (0-5/HPF) Ur Squamous Epith Cells (0-5/HPF) Urine Bacteria (None) Ur Culture Indicated? Vol Urine Centrifuged Urine Test (Negative) Salicylates (<20) mg/dL U Opiates 300ng/mL cut (Negative) Ur Oxycodone Screen (Negative) Urine Methadone Screen (Negative) Acetaminophen (10-30) ug/mL Ur Barbiturates Screen (Negative) U Tricyclic Antidepress (Negative) Ur Phencyclidine Scrn (Negative) Ur Amphetamines Screen (Negative) U Methamphetamines Scrn (Negative) Ur MDMA Scrn (Ecstasy) (Negative) U Benzodiazepines Scrn (Negative) Urine Cocaine Screen (Negative) U Marijuana (THC) Screen (Negative) Urine Specific [place] (Normal) Ethyl Alcohol ( - 10) mg/dL Ur Creatinine (Normal) SARS-CoV-2 (PCR) Negative (Negative) MDM Narrative Medical decision making narrative: Patient was clearly under the influence of an intoxicating substance. She does admit to drinking some vodka this evening. According to the patient's she was just discharged from an alcohol rehab facility earlier this week. Apparently she was also on some new medications. She denies any other drugs or alcohol. She was slurring her words but is oriented to person and place. She was ambulating without difficulty. Initially did not want any blood drawn but when I explained to her that would be important for us to determine what exactly is causing her presenting symptoms today she stated that she was okay with a strong blood. Care turned over to Dr. Lopes to follow-up on labs and disposition. Dr. Lopes - care of patient signed to me by Dr. Ontiveros. Patient alert in room but not oriented - she states that she is in [facility]. She knows that it is 2023, but she states that Favio Saenz is president, with Harper following him. Spoke with -he states that last night the patient seemed to be slightly confused, but he felt that she was well enough to go to work today. When he came home from work the house was torn apart and the medications were missing and patient was acting very altered and confused. He does not know the name of her medications. We attempted to call the facility, but they do not have a formal medication list available to give to us. Nursing staff was able to do a pharmacy search and medication list was updated, however it was uncertain if patient took more of the medications then she should have. Alcohol level less than 10. Labs show chronic anemia, approximately at baseline. Ammonia undetectable, TSH within normal limits. CT brain negative for acute findings. Drug screen positive for benzodiazepines and TCAs. Salicylate and acetaminophen levels undetectable. No obvious cause for patient's symptoms at this time. Plan to monitor overnight and reassess in the morning. contacted again - he found doxepin, aripiprazole, and escitalopram bottles empty in the trash. Uncertain if dumped or consumed by patient Patient monitored overnight without any acute incident. She did receive Ativan, Benadryl, and Seroquel for sleep as patient was otherwise pacing the hallways and required frequent redirection. At 6:30 a.m. patient was awakened. She was much more calm and slightly more oriented, however still confused. She thinks that she is about to be released from her rehab facility and is hallucinating a little girl in the room with her. Dr Ontiveros: Received turned over. Reviewed the events overnight. During the day today the patient was still confused. Is obviously responding to internal stimuli. At times became somewhat agitated. Did receive several doses of oral medications to try to help calm her however there is some question as to whether or not she actually spit these medications out. She was then given an IV dose of Haldol. She did sleep for a period of time. She was ambulatory. Is tolerating oral intake. Social work has been involved. DCR is here evaluating the patient. Care turned over to Dr. Lopes to follow-up and disposition. <Elena Lopes MD - Last Filed: 08/12/24 21:57> Lab Data Labs: Lab Results 08/07/24 08/07/24 08/07/24 Range/Units 17:17 17:17 18:22 WBC 5.3 (4.5-11.0) X10^3/uL RBC 4.08 (4.0-5.2) X10^6/uL Hgb 8.4 L (12.0-16.0) g/dL Hct 27.9 L (36-46) % MCV 68.2 L (80-100) fL MCH 20.6 L (26-34) PG MCHC 30.1 (30-36) % RDW 18.9 H (11.6-14.8) % Plt Count 352 (150-400) X10^3/uL Neut % (Auto) 61.6 (50-75) % Lymph % (Auto) 23.8 L (25-40) % Brooks % (Auto) 9.7 (3-14) % Eos % (Auto) 4.4 H (2-4) % Baso % (Auto) 0.5 (0-2) % Neut # (Auto) 3300 (3159-2836) /uL Lymph # (Auto) 1300 (7240-9545) /uL Brooks # (Auto) 500 (0-900) /uL Eos # (Auto) 200 (0-450) /uL Baso # (Auto) 0 (0-100) /uL RBC Morphology See below Microcytosis 2+ H Sodium 138 (137-145) mmol/L Potassium 3.8 (3.4-5.1) mmol/L Chloride 108 H (98-107) mmol/L Carbon Dioxide 22 (22-32) mmol/L BUN 14 (7-17) mg/dL Creatinine 0.67 (0.52-1.04) mg/dL Estimated GFR > 60 (>60) mL/min BUN/Creatinine Ratio 20.9 (6-22) Glucose 94 (70-100) mg/dL Calcium 9.0 (8.4-10.2) mg/dL Total Bilirubin 0.4 (0.2-1.3) mg/dL AST 64 H (14-36) IU/L ALT 33 (<35) IU/L Alkaline Phosphatase 90 (38-126) U/L Ammonia (9-30) umol/L Total Protein 7.2 (6.3-8.2) g/dL Albumin 4.3 (3.5-5.0) g/dL Globulin 2.9 (1.7-4.1) g/dL Albumin/Globulin Ratio 1.5 (1.0-2.8) TSH 0.562 (0.47-4.68) uIU/mL Urine Color Yellow Urine Appearance Clear Urine pH 6.0 Normal (4.5-8.0) Ur Specific [place] <=1.005 (1.000-1.035) Urine Protein Negative (Negative) Urine Glucose (UA) Negative (Negative) g/dL Urine Ketones Negative (NEGATIVE) Urine Occult Blood Negative (Negative) Urine Nitrate Negative (Negative) Urine Bilirubin Negative (NEGATIVE) Urine Urobilinogen 0.2 (0.2) E.U./dL Ur Leukocyte Esterase Trace H (NEGATIVE) Urine RBC None seen (0-5/HPF) Urine WBC None seen (0-5/HPF) Ur Squamous Epith Cells None seen (0-5/HPF) Urine Bacteria None seen (None) Ur Culture Indicated? Cult not indicated Vol Urine Centrifuged 10ml (spun) Urine Test Negative (Negative) Salicylates < 1.0 (<20) mg/dL U Opiates 300ng/mL cut Negative (Negative) Ur Oxycodone Screen Negative (Negative) Urine Methadone Screen Negative (Negative) Acetaminophen < 10 (10-30) ug/mL Ur Barbiturates Screen Negative (Negative) U Tricyclic Antidepress Positive H (Negative) Ur Phencyclidine Scrn Negative (Negative) Ur Amphetamines Screen Negative (Negative) U Methamphetamines Scrn Negative (Negative) Ur MDMA Scrn (Ecstasy) Negative (Negative) U Benzodiazepines Scrn Positive H (Negative) Urine Cocaine Screen Negative (Negative) U Marijuana (THC) Screen Negative (Negative) Urine Specific [place] Normal (Normal) Ethyl Alcohol < 10 ( - 10) mg/dL Ur Creatinine Normal (Normal) SARS-CoV-2 (PCR) (Negative) 08/07/24 08/07/24 Range/Units 19:09 20:04 WBC (4.5-11.0) X10^3/uL RBC (4.0-5.2) X10^6/uL Hgb (12.0-16.0) g/dL Hct (36-46) % MCV (80-100) fL MCH (26-34) PG MCHC (30-36) % RDW (11.6-14.8) % Plt Count (150-400) X10^3/uL Neut % (Auto) (50-75) % Lymph % (Auto) (25-40) % Brooks % (Auto) (3-14) % Eos % (Auto) (2-4) % Baso % (Auto) (0-2) % Neut # (Auto) (4657-5224) /uL Lymph # (Auto) (1477-0014) /uL Brooks # (Auto) (0-900) /uL Eos # (Auto) (0-450) /uL Baso # (Auto) (0-100) /uL RBC Morphology Microcytosis Sodium (137-145) mmol/L Potassium (3.4-5.1) mmol/L Chloride (98-107) mmol/L Carbon Dioxide (22-32) mmol/L BUN (7-17) mg/dL Creatinine (0.52-1.04) mg/dL Estimated GFR (>60) mL/min BUN/Creatinine Ratio (6-22) Glucose (70-100) mg/dL Calcium (8.4-10.2) mg/dL Total Bilirubin (0.2-1.3) mg/dL AST (14-36) IU/L ALT (<35) IU/L Alkaline Phosphatase (38-126) U/L Ammonia < 9 L (9-30) umol/L Total Protein (6.3-8.2) g/dL Albumin (3.5-5.0) g/dL Globulin (1.7-4.1) g/dL Albumin/Globulin Ratio (1.0-2.8) TSH (0.47-4.68) uIU/mL Urine Color Urine Appearance Urine pH (4.5-8.0) Ur Specific [place] (1.000-1.035) Urine Protein (Negative) Urine Glucose (UA) (Negative) g/dL Urine Ketones (NEGATIVE) Urine Occult Blood (Negative) Urine Nitrate (Negative) Urine Bilirubin (NEGATIVE) Urine Urobilinogen (0.2) E.U./dL Ur Leukocyte Esterase (NEGATIVE) Urine RBC (0-5/HPF) Urine WBC (0-5/HPF) Ur Squamous Epith Cells (0-5/HPF) Urine Bacteria (None) Ur Culture Indicated? Vol Urine Centrifuged Urine Test (Negative) Salicylates (<20) mg/dL U Opiates 300ng/mL cut (Negative) Ur Oxycodone Screen (Negative) Urine Methadone Screen (Negative) Acetaminophen (10-30) ug/mL Ur Barbiturates Screen (Negative) U Tricyclic Antidepress (Negative) Ur Phencyclidine Scrn (Negative) Ur Amphetamines Screen (Negative) U Methamphetamines Scrn (Negative) Ur MDMA Scrn (Ecstasy) (Negative) U Benzodiazepines Scrn (Negative) Urine Cocaine Screen (Negative) U Marijuana (THC) Screen (Negative) Urine Specific [place] (Normal) Ethyl Alcohol ( - 10) mg/dL Ur Creatinine (Normal) SARS-CoV-2 (PCR) Negative (Negative) ECG Data Attestation: I personally reviewed and interpreted this ECG as follows: Interpretation: Normal sinus rhythm. No QTC prolongation no QRS prolongation. No ST T wave changes. [facility] Narrative Medical decision making narrative: Patient was clearly under the influence of an intoxicating substance. She does admit to drinking some vodka this evening. According to the patient's she was just discharged from an alcohol rehab facility earlier this week. Apparently she was also on some new medications. She denies any other drugs or alcohol. She was slurring her words but is oriented to person and place. She was ambulating without difficulty. Initially did not want any blood drawn but when I explained to her that would be important for us to determine what exactly is causing her presenting symptoms today she stated that she was okay with a strong blood. Care turned over to Dr. Lopes to follow-up on labs and disposition. Dr. Lopes - care of patient signed to me by Dr. Ontiveros. Patient alert in room but not oriented - she states that she is in [facility]. She knows that it is 2023, but she states that Favio Saenz is president, with [employer] following him. Spoke with -he states that last night the patient seemed to be slightly confused, but he felt that she was well enough to go to work today. When he came home from work the house was torn apart and the medications were missing and patient was acting very altered and confused. He does not know the name of her medications. We attempted to call the facility, but they do not have a formal medication list available to give to us. Nursing staff was able to do a pharmacy search and medication list was updated, however it was uncertain if patient took more of the medications then she should have. Alcohol level less than 10. Labs show chronic anemia, approximately at baseline. Ammonia undetectable, TSH within normal limits. CT brain negative for acute findings. Drug screen positive for benzodiazepines and TCAs. Salicylate and acetaminophen levels undetectable. No obvious cause for patient's symptoms at this time. Plan to monitor overnight and reassess in the morning. contacted again - he found doxepin, aripiprazole, and escitalopram bottles empty in the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
[2024-08-07 17:15] VITALS: BP 145/78; PULSE 90; RESP 20; TEMP 36.5; O2SAT 100
[2024-08-07 17:29] LABS: Appearance Urine UA CLEAR; Bilirubin Urine UA NEGATIVE (NEGATIVE); Color Urine UA YELLOW; Glucose Urine UA NEGATIVE (Negative); Ketones Urine UA NEGATIVE (NEGATIVE); Leukocyte Esterase Urine UA TRACE (NEGATIVE); Nitrite Urine UA NEGATIVE (Negative); Occult Blood Urine UA NEGATIVE (Negative); Protein Urine UA NEGATIVE (Negative); Specific Gravity Urine UA <=1.005 (1.000-1.035); Urobilinogen Urine UA 0.2 E.U./dL (0.2)
[2024-08-07 17:33] LABS: Pregnancy Test Urine Negative (Negative); Ur Creatinine Normal (Normal); Ur Specific Gravity Normal (Normal); Urine pH Normal (Normal)
[2024-08-07 17:34] LABS: Urine Amphetamines Negative (Negative); Urine Barbiturates Negative (Negative); Urine Benzodiazepines Positive (Negative); Urine Cocaine Negative (Negative); Urine MDMA Negative (Negative); Urine Methadone Negative (Negative); Urine Methamphetamines Negative (Negative); Urine Opiates Negative (Negative); Urine Oxycodone Negative (Negative); Urine Phencyclidine Negative (Negative); Urine THC Negative (Negative); Urine Tricyclic Antidepressant Positive (Negative)
[2024-08-07 17:36] LABS: RBC Urine None Seen (0-5/HPF); Urine Volume 10mL (spun); WBC Urine None Seen (0-5/HPF)
[2024-08-07 17:37] LABS: Bacteria Urine None Seen; Culture Indicated Urine Cult Not Indicated; Squamous Epithelial Cell Urine None Seen (0-5/HPF)
--- NOTE | 2024-08-07 17:50 | PC.NURSE ---
During triage patient is confused and providing information that is difficult to follow regarding events leading up to ER visit and why she has come to the ER. Patient's asked to triage room with this RN to discuss his concerns about patient. Patient's (Wayne) states that patient was just released out of a alcohol rehab facility on Friday (08/02/24) where she was treated for her alcohol abuse. Wayne states that patient was given new medications while in this rehab facility and was discharged home continuing some of these medications but he is unsure of the names of medications at this time. He reports that Friday when she was sent home she was very tired but was not confused. Then last night patient began having bizarre behavior, rambling sentences that don't make sense, restless and wandering in home and becoming agitated when attempted to redirect. Wayne states that today her behaviors worsened, stating, the house is trashed and that she was beginning to scare their young daughter who was in the house seeing her mother act this way. Wayne states he does not believe that she has been drinking alcohol or using any recreational drugs, but he is concerned that her behavior is related to the new medications she is taking. Wayne provided information to contact the facility patient was in rehab at. [facility], phone number [phone]. This RN reached out to the facility and spoke with ABHILASH Corral who was unable to provide medication list from while she was being treated at facility or what she was discharged home on. Using the external medication history it was noted that patient had multiple new medications prescribed and filled since 07/16/24. These medications were reviewed with Rama JURADO and added to patient's home med list. Wayne (Patient's ) stating that he is going to leave ER with daughter to get her dinner, but he can be reached at #[phone] with updates on patient or if staff have questions.
[2024-08-07 18:32] LABS: Add Manual Diff / Slide Review NO; Basophils Absolute Auto 0 /uL (0-100); Basophils Percent Auto 0.5 % (0-2); Eosinophils Absolute Auto 200 /uL (0-450); Eosinophils Percent Auto 4.4 % (2-4); Hematocrit 27.9 % (36-46); Hemoglobin 8.4 g/dL (12.0-16.0); Lymphocytes Absolute Auto 1300 /uL (1100-4500); Lymphocytes Percent Auto 23.8 % (25-40); Mean Corpuscular HGB Conc 30.1 % (30-36); Mean Corpuscular Hemoglobin 20.6 PG (26-34); Mean Corpuscular Volume 68.2 fL (80-100); Monocytes Absolute Auto 500 /uL (0-900); Monocytes Percent Auto 9.7 % (3-14); Neutrophils Absolute Auto 3300 /uL (1500-7000); Neutrophils Percent Auto 61.6 % (50-75); Platelet Count 352 X10^3/uL (150-400); Red Blood Cell Count 4.08 X10^6/uL (4.0-5.2); Red Cell Distribution Width 18.9 % (11.6-14.8); White Blood Cell Count 5.3 X10^3/uL (4.5-11.0)
[2024-08-07 18:40] LABS: Alanine Aminotransferase 33 IU/L (<35); Albumin 4.3 g/dL (3.5-5.0); Albumin Globulin Ratio 1.5 (1.0-2.8); Alkaline Phosphatase 90 U/L (38-126); Aspartate Aminotransferase 64 IU/L (14-36); BUN Creatinine Ratio 20.9 (6-22); Bilirubin Total 0.4 mg/dL (0.2-1.3); Blood Urea Nitrogen 14 mg/dL (7-17); Carbon Dioxide 22 mmol/L (22-32); Chloride 108 mmol/L (98-107); Estimated Glomerular Filt Rate > 60 mL/min (>60); Ethanol (ETOH) < 10 mg/dL; Globulin 2.9 g/dL (1.7-4.1); Glucose 94 mg/dL (70-100); HEMOLYSIS < 15 (0-50); Potassium 3.8 mmol/L (3.4-5.1); Sodium 138 mmol/L (137-145); Total Protein 7.2 g/dL (6.3-8.2)
--- NOTE | 2024-08-07 18:40 | DI.CT.S_ITS ---
PROCEDURE: CT HEAD/BRAIN WO CON INDICATIONS: AMS TECHNIQUE: Noncontrast 4.5 mm thick angled axial sections acquired from the foramen magnum to the vertex, with coronal and sagittal reformats. For radiation dose reduction, the following was used: automated exposure control, adjustment of mA and/or kV according to patient size. COMPARISON: None. FINDINGS: Image quality: Diagnostic. CSF spaces: Basal cisterns are patent. No extra-axial fluid collections. Ventricles are normal in size and shape. Brain: No midline shift. No intracranial masses or hemorrhage. Fregoso-white matter interface is normal. Skull and face: Calvarium and visualized facial bones are intact, without suspicious lesions. Sinuses: Visualized sinuses and mastoids are clear. IMPRESSION: Normal CT of the brain Approved by: Vinay Adler M.D. on 08/07/2024 at 18:02
[2024-08-07 18:56] LABS: Microcytosis 2+
[2024-08-07 19:10] LABS: Thyroid Stimulating Hormone 0.562 uIU/mL (0.47-4.68)
[2024-08-07 19:18] VITALS: PULSE 83; RESP 16; O2SAT 99
[2024-08-07 19:18] LABS: Acetaminophen < 10 ug/mL (10-30); Salicylate < 1.0 mg/dL (<20)
[2024-08-07 19:25] LABS: Ammonia (NH3) < 9 umol/L (9-30)
--- NOTE | 2024-08-07 19:57 | EKG_ITS ---
[address] [address] Test Date: 2024-08-07 Pat Name: Key Douglass Department: [facility] Room: Gender: Female Necktie Maker: BENJAMIN : 1990 Requested By: Order Number: [id number] Reading MD: Jesus Jones MD Measurements Intervals [place] Rate: 82 P: 50 RI: 162 QRS: 17 QRSD: 88 T: 58 QT: 398 QTc: 464 Interpretive Statements Normal sinus rhythm Electronically Signed On 08-08-2024 2:30:22 PST by Jesus Jones MD
--- NOTE | 2024-08-07 20:00 | PC.NURSE ---
Addendum entered by Radha Best R.N. 08/07/24 20:10: Pt stated that she wanted to speak with him. was weepy and gave me information about the found empty bottles of medications. 1. Escitalopram 10 mg filled on 07/16/24 #30 tabs was empty 2. Aripiprazole 10 mg filled 07/16/24 #30 tabs was empty 3. Doxepin 50 mg caps #60 tabs filled on 08/03/24 30 day supply Advised provider of this information. Pt advised that can be contacted in the morning since he is tending to child at this time. Original Note: Called and spoke to
[2024-08-07] MEDS: QUETIAPINE 25 MG TABLET 100 MG PO (20:05)
[2024-08-07 20:28] LABS: COVID19 -Nasal RAPID Negative (Negative)
[2024-08-07] MEDS: LORazepam 0.5 MG TABLET 2 MG PO (22:34)
[2024-08-07] MEDS: NICOTINE 14 PATCH 14 MG TOP (22:34)
--- NOTE | 2024-08-07 22:59 | PC.NURSE ---
For the past 2 hours pt has been passing around her room and the halls. Pt states she wants to go out and smoke. Reminded pt that this is a non-smoking facility and offered multiple times a nicotine patch. At time of giving pt ativan applied a nicotine patch. Currently pt is laying in bed speaking out loud.
--- NOTE | 2024-08-07 23:02 | PC.NURSE ---
Pt attempting to sleep.
[2024-08-07] MEDS: diphenhydrAMINE 50 MG/ML VIAL IV (23:27)
[2024-08-07] MEDS: LORazepam 2 MG/ML INJ IV (23:27)
[2024-08-08] VITALS (7 sets, daily range): BP systolic 128–135; BP diastolic 68–81; PULSE 72–104; RESP 16–22; TEMP 36.2; O2SAT 93–100; BMI 27.6
--- NOTE | 2024-08-08 03:42 | PC.NURSE ---
Allowed pt to sleep at this time deferred assessment.
[2024-08-08] MEDS: THIAMINE 200 MG in SODIUM CHLORIDE 0.9% 100 ML 408 MG IV (07:37)
[2024-08-08] MEDS: FOLIC ACID 1 MG TABLET PO (07:37)
--- NOTE | 2024-08-08 08:18 | PC.NURSE ---
Breakfast provided to patient. Pt complains of eggs being squishy and undercooked asking me to put the eggs back on the stove until they are almost burnt. Pt educated that kitchen is unavailable on weekends during breakfast time. Pt states she needs her phone or else she will leave. I educated pt that there was not a phone in her belongings. Educated pt that her wallet is the only personal item in the department. Pt states she needs to call her . Pt educated that her is aware she is here and should be checking in with us. Pt goes on to say we are not allowed to release medical private information to her stating my things that are private are not meant to be shared with him. Pt denies SI/HI. Pt ambulated to bathroom and is sitting in bed.
[2024-08-08] MEDS: MULTIVITAMIN 1 TABLET 1 TAB PO (08:30)
[2024-08-08] MEDS: ACETAMINOPHEN IV 1,000 MG/100 ML VIAL 400 MG IV (08:31)
--- NOTE | 2024-08-08 08:38 | PC.NURSE ---
Pt walked out to [facility] and states we need to transfer labs to another place. I redirected pt back to her room and brought her medication for pain. Pt states I need to talk to my . My release date was this morning. I've been here since the , I talked to Vish who is a child welfare caseworker and we planned on leaving today. You cannot keep me here, I will leave. Pt describes: I've been seeing my daughter in here next to me, and my and son on the other side of me. Pt states I understand that my daughter is with my but I keep seeing her.
[2024-08-08] MEDS: LORazepam 1 MG TABLET 2 MG PO (08:53)
--- NOTE | 2024-08-08 09:18 | PC.NURSE ---
I called pt's per pt's request. I asked Moreno (pt's ) for more information regarding pt's mentation the past week. Moreno rpts pt was seen at [facility] for 24day inpatient alcohol dependance rehab and was sent home last friday. Pt seemed normal Friday-. On friday Moreno reports pt being confused including trashing the house and food thrown everywhere. He mentioned they went out for dinner and pt seemed confused and had difficulty ordering food. They stopped at the grocery store and pt was lost in the store and trying was repeatedly asking where her son and daughter are. Pt was able to call her on the ER department phone and talk with him for a few minutes. Pt states my was able to express his concern for me. Pt asking about pain medications, I asked if the tylenol helped with her pain. Pt looked confused and states what? No I havent had anything. I told pt her IV tylenol infusion was complete about 45minutes ago. Pt again states she does not remember this. Pain remains 7/10. Pt then looked at the clock and states they were in here messing with the clock. Pt sitting in bed. Pt has been frequently coming out to the hallway to ask about leaving to get more food. Pt has been offered food multiple times but refuses and is redirected back into her room. [facility] phone # [phone]
--- NOTE | 2024-08-08 10:03 | PC.NURSE ---
Pt comes out of room asking why she cannot leave this floor. Educated pt on the ER and her need to stay in her room. She asked Did you check him three times? I asked her to clarify what she means. Pt states did he get checked three times? I told pt I do not understand what she is referring to. Pt states If my is not here in 10 minutes.... I redirected pt to room and BEHAVIORAL HEALTH AIDE brought patient toothbrush with toothpaste, a hair brush and a pair of clean underwear.
[2024-08-08] MEDS: OLANZapine ODT 10 MG TAB PO (10:28)
[2024-08-08] MEDS: NICOTINE 14 PATCH 14 MG TOP (10:31)
--- NOTE | 2024-08-08 11:17 | PC.NURSE ---
pt states walked in room and was talking to her, not present. pt says gloves are falling off the wall. GAMMA OPERATOR redirected pt.
[2024-08-08] MEDS: HALOPERIDOL 5 MG/ML VIAL IV (11:26)
--- NOTE | 2024-08-08 11:44 | PC.NURSE ---
Wayne, pt's called to ask how things are progressing for pt. Updated Wayne that GEAR CUTTING MACHINE OPERATOR will assess pt and talk with the doctor to come up with a treatment plan of care. Wayne mentioned pt usually had drink or two at night back in april. 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 In may Wayne's mother and he noticed pt became dependant on alcohol at this time due to the loss of family member. Wayne describes bringing up his concerns to patient in May about alcohol dependance and discussed inpatient treatment. Pt was agreeable and went for inpatient alcohol dependance. More life stressors of pt and her family just moved to the area.
--- NOTE | 2024-08-08 11:50 | PC.NURSE ---
Patient ED records from [facility] on July requested @2790. Spoke with Shiloh at the transfer center. call back #[phone] if needed.
--- NOTE | 2024-08-08 11:53 | PC.NURSE ---
Patient is agitated and pacing around in her room, has made several attempts to leave department, hallucinating that her daughter is present in the room and trying to feed her. Provider Rama is aware and ordered Haldol, see MAR. Patient is one to one monitoring currently. Patient has been offered lunch tray, juice and water, and snacks
--- NOTE | 2024-08-08 11:56 | PC.NURSE ---
Pt is sitting the chair eating lunch looking at the corner of the room talking to herself.
--- NOTE | 2024-08-08 12:15 | PC.NURSE ---
pt paced in room and was talking to herself while folding all of her blankets and taking the sheets off her bed. I went into the room to help her change her sheets and the patient talked to me in sentences that did not match up to a particular story or outline. I helped the patient tidy her room, got fresh warm blankets and redirected her to lie in the bed and try and take a nap.
--- NOTE | 2024-08-08 12:22 | PC.NURSE ---
I called [facility] and talked to Registered Nurse Ellis. RN Ellis states multiple times they will not be able to fax any records over the weekend as that is all taken care of by our admin release of records department friday-friday. I asked Ellis if I could talk to healthcare facility administrator dictaphone technician regarding records due to the need for continuity of care. Ellis states he will try to call the healthcare facility administrator and inform them of the situation of emergent records release. I asked Ellis when I can expect him to return my call and he states he will call back by 1400. I clarified with Ellis that if the healthcare facility administrator dictaphone technician refuses to release records I need to be called directly to speak with administration. Ellis expressed understanding. I provided him my return phone number.
--- NOTE | 2024-08-08 13:20 | PC.NURSE ---
Patient is resting with her eyes closed, respirations are even, continuous pulse ox in place
--- NOTE | 2024-08-08 13:32 | PC.NURSE ---
deferring assessment so patient can rest
--- NOTE | 2024-08-08 14:47 | CM.SWNOTE ---
ED PLASTER MACHINE OPERATOR Assessment Note: PLASTER MACHINE OPERATOR - Claims Customer Service Representative Assessment PLASTER MACHINE OPERATOR/Claims Customer Service Representative Assessment Time Spent with Patient Start date 08/08/24 Visit Start Time 12:00 End date 08/08/24 Visit End Time 12:20 Total time Care Management spent on 20 minutes patient visit-in minutes Mental Health Screening Include Onset, Duration, Intensity Presenting Problem Patient presented on 08/07 at approximately 1700 via private vehicle, accompanied by , due to altered mental status and concern for prescription drug overdose. Patient presented with nonsensical speech, auditory and visual hallucinations while responding to internal stimuli , and bizzare behavior. Precipitating Event(s) Per spouse, patient was recently discharged from a residential alcohol treatment program ([facility] - #[phone]) and prescribed new medications. These medications include: benztropine, quetiapine, doxepin, escitalopram, gabapentin, famotidine, aripiprazole. It has been reported that the rx bottles of escitalopram, aripiprazole and doxepin were found empty in the patient's trash bin at home. It is unclear whether pt ingested these medications or they were disposed by patient. It is reported by patient's spouse that when patient was discharged from the above facility, pt was hypersomnolent for the first three days. On Friday, 08/06, patient was more awake but started to act more erratic. On Friday, 08/07, patient's returned from work and found the house in disarray food was everywhere and ( patient) was in the middle of dying her hair but did not finish. Patient was also found to be experiencing visual hallucinations and responding to internal stimuli . Per spouse, She was talking to my mother who seven months ago. Patient Strengths Patient is supported by her spouse, Wayne. Current Behavioral Health Provider(s) None reported. Include Facility, Provider, Ph. # Psych. Hx Mental Health and Chemical No official diagnosis recorded Dependency . Patient has a rx of benztropine, quetiapine, doxepin, escitalopram, gabapentin, famotidine, aripiprazole. Family Hx of Behavioral Abuse None reported. Psychiatric Hospitalizations (date(s)/ None reported. Patient location) recently completed residential treatment for alcohol use at [facility] in [place], [place]. Psychosocial information & Support Patient is a 34yo female, Systems resident of [place]. Patient lives with her spouse, Wayne, who is an active duty servicemember in the [employer] and her daughter (7yo) and son ( 16yo). 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 Substance Abuse Screening Include Onset, Duration, Intensity Presenting Problem Previous alcohol use identified, patient's Utox and BAL negative at time of ED presentation. Rehab Facilities? ((Date(s), Location(s) [facility] ) ([place], [place]), recently discharged on 08/02/2024. Legal Concerns Legal Matters - Outstanding Issues None reported Mental Status Orientation (Person/Place/Time) AOx1 Affect (Congruent with Mood?) Congruent with mood Thought Content - Specify/Describe Auditory and visual Obsessions, Delusions, Hallucinations hallucinations, responding to internal stimuli. Patient is identified in the ED to be having a conversation with her daughter who is not present in the room with her. Thought Processes (Jhiwqvt-Hszfykdi-Fkmx Disorganized, thought blocking Fabyesbc-Jdiweeae-Ikvjdwtimh- . Patient identified to have Ccjkijmnjcgiwi-Sgnfjqj-Gursjuwmrsuj- nonsensical speech, word salad Thought Blocking) . Patient preserverates on ideas with no point of reference. Speech (Nipasm-Lqns-Qwmqimj-Rapid-Soft- Rapid Loud-Pressured) Motor (Tdvrdm-Zlqhhtuqz-Oyhn-Other) Excessive, fidgety, compulsive (requesting to ambulate in emergency department multiple times), needs to be redirected consistently. Insight (Wmec-Frjr-Qmea/Limited) Poor Judgement (Ivsn-Kukp-Blif/Limited) Poor Impulse Control (Adequate-Impaired) Impaired Memory (Ofynexqnh-Dazahn-Qjnkqw, Impaired Impaired-Intact) Concentration (Intact-Impaired) Impaired Attention (Intact-Impaired) Impaired Behavior (Appropriate-Inappropriate) Inappropriate Risk Assessment Suicidal Ideation (Plan) No Homicidal Ideation (Plan) No Intervention Intervention ED PLASTER MACHINE OPERATOR reviewed chart and discussed patient with ED staff and provider. Per notes, patient has been AO only to self, believes she is still at her rehab facility in [place], [place]. Patient preserverates that she needs to be released. ED PLASTER MACHINE OPERATOR could not assess patient individually due to haldol dose and patient sleeping. Per RN, pt only slept 4 hours the previous night and it was not consistent. Patient was visualzed by this PLASTER MACHINE OPERATOR to be compulsive and requiring redirection by nursing staff. Patient wants to leave AMA but is not oriented to self. ED PLASTER MACHINE OPERATOR spoke with pt's spouse who confirmed previous reports of sudden onset of bizzare behavior prior to taking patient to ED. 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 ED staff attempting to obtain records from [facility] at [facility] for medication reconciliaton but not able to retrieve due to no administrative personnel in on weekends. It is the opinion of this PLASTER MACHINE OPERATOR that pt is a candidate for detainment due to grave disability and danger to self/ others. Patient would benefit from inpatient treatment for medication stabilization. ED PLASTER MACHINE OPERATOR discussed the above with ED Provider, Dr. Ontiveros, who indicated understanding and agreement with plans for DCR dispatch for detainment. Patient was medically cleared at 1200 on 08/08/2024. ED PLASTER MACHINE OPERATOR called [facility]AD line and discussed pt with [facility] Benavidez dispyaw. It is reported that pt file is initiated and DCR will be dispatched. BRAD Attestation form sent via fax to TANYA and [facility] (fax#). This was completed at 1344. Plan RA Plan DCR dispatched and awaiting assessment for detainment due to grave disability, danger to self. ED PLASTER MACHINE OPERATOR following for discharge coordiation. DONATO Santana
[2024-08-08] MEDS: LORazepam 2 MG/ML INJ 1 MG IV (14:48)
--- NOTE | 2024-08-08 16:50 | PC.NURSE ---
Patient allowed to rest, will complete assessment at another time
--- NOTE | 2024-08-08 18:17 | CM.SWNOTE ---
ED PRESCHOOL DISABILITY TEACHER Note: Tiffani Pete arrived to ED to complete detainment assessment. It is reported by DCR that patient was able to have an improved conversation although still somewhat confused with date. DCR attempted to have a family conversation regarding discharge planning. Pt contacted and he determined he does not feel safe with follow up care with [facility] and outpatient MH services at this time. TANYA Pete detained patient for involuntary treatment at approximately 1800, bed search initiated. ED PRESCHOOL DISABILITY TEACHER assisted with sending clinical packet to review at the direction of TANYA Pete. Clinical packet sent to [facility] after it has been identified that they have beds available and they can review patient for an [facility] placement. Plan: Pending acceptance for involuntary MH treatment. ED staff following with TANYA Pete for continued discharge coordination. DONATO Santana
[2024-08-08] MEDS: LORazepam 2 MG/ML INJ IV (18:43)
--- NOTE | 2024-08-08 18:53 | PC.NURSE ---
patient detained at 1800. Patient getting very anxious and states that she needs her medications she states that the meds should all be here. This RN told the patient that she would get something to help with her anxiety, see MAR. Told this RN that she can be a really violent person if things dont start to go my way, given ativan see MAR.
--- NOTE | 2024-08-08 19:47 | PC.NURSE ---
Spoke to on the phone to get specific instructions contract project manager time. Wayne states that it does not matter when she wants to talk he will be available. If we call and he does not answer then he will return call when he wakes. He understands that we are searching for bed placement for her.
--- NOTE | 2024-08-08 20:12 | PC.NURSE ---
Changed AMS assessment at this time to Psychiatric. This allows for pt to sleep and a more detailed psychiatric assessment.
[2024-08-08] MEDS: QUETIAPINE 25 MG TABLET 100 MG PO (21:46)
[2024-08-08] MEDS: diphenhydrAMINE 25 MG TABLET 50 MG PO (21:47)
--- NOTE | 2024-08-08 22:16 | PC.NURSE ---
Removed second nicotine patch that was placed yesterday on back of left upper shoulder.
--- NOTE | 2024-08-09 02:46 | PC.NURSE ---
Due to pt being a flight risk, placed her on 1:1 placement. Pt has Y[facility]NI paperwork at bedside.
--- NOTE | 2024-08-09 02:48 | PC.NURSE ---
Pt has not slept yet despite routine medications. Discussed with pt about reason for being here at the hospital and need to be admitted to [facility] facility in [place]. Pt also wanted to discuss her Y[facility]NI paperwork. At this time pt still can not track where and why she is here at [facility]. She keeps speaking about being able to go outside to smoke. Reminded her that she is waiting to be transferred to [facility] in [place].
--- NOTE | 2024-08-09 05:50 | PC.NURSE ---
Pt exited her room. Staff contacted me for assistance due to pt attempting to leave. Pt took off walking fast through doors to diagnostic imaging. Pt then proceded to walk to surgical waiting room. Staff followed behind this nurse cut through from ED directly to surgical waiting area to meet up with pt prior to her getting to another exit. Attempted to redirect pt back to ER room so that we can talk about more of the thoughts that are running through her head. Pt still confused thinking that she is in another place not [place]. Pt gets more upset when told this information. While using multiple attempts to direct pt back to room pt continued to refused and police were contacted. After about 15 to 20 minutes pt finally calmed enough to return to room to be able to talk to this nurse. Spoke to pt de-escalated enough to take her IV out, talk about some of her concerns, and give her some oral ativan for ride to [facility]. Then pt attempted to call and mother on phone without answer. After about 10 minutes pt came out to nursing station to return phone. Pt given chocolate chip granola bar and chip. Then she allow the sitter to take her last set of vitals.
[2024-08-09] MEDS: LORazepam 0.5 MG TABLET 2 MG PO (06:15)
[2024-08-09 06:46] VITALS: BP 137/77; PULSE 85; RESP 14; TEMP 36.7; O2SAT 100
--- NOTE | 2024-08-09 17:09 | CM.SWNOTE ---
ED ENGINEERING OPERATIONS LEADER Follow up Note: Per EMR review, pt has been discharged to [facility] for YENNI treatment. Patient's , Moreno, called this ENGINEERING OPERATIONS LEADER requesting assistance as he does not have a case/access number to return calls to when she calls him. Pt verbalized frustration as his is not able to understand his request for code due to cognitive status and no nurse or provider will return his call, per his reports. Patient states he has been trying all day to speak with [facility], [facility], and [facility] and has not been able to coordinate this. ED ENGINEERING OPERATIONS LEADER forwarded welcome brochure to [facility] to provide more information of the access code and visitation hours if he chooses to attempt to see patient in person. ED ENGINEERING OPERATIONS LEADER discussed Privacy Practices as displayed on [facility] website and a possible contact regarding their strict privacy guidelines. All answers questions and no other needs identified per patient spouse. DONATO Santana
== END 2024-08-09 07:00 ==
PROVIDERS: Emergency Medicine; Emergency Provider Emergency Medicine
DX: R41.82 Altered mental status, unspecified (principal); R47.81 Slurred speech; T50.905A Adverse effect of unspecified drugs, medicaments and biological substances, initial encounter; Z11.52 Encounter for screening for COVID-19
CPT/HCPCS: 36415; 70450; 80053; 80305; 80320; 80329; 81001; 81025; 82140; 84443; 85025; 87635; 93005; 93010; 96365; 96367; 96375; 96376; 99285; G0480; J0134; J1200; J1630; J2060

== ENCOUNTER 2024-09-09 01:27 | Emergency (ER) | payer OTHER, SELFPAY ==
[2024-09-09 01:50] VITALS: BP 112/75; PULSE 85; RESP 17; TEMP 36.3; O2SAT 100; BMI 26.6
--- NOTE | 2024-09-09 02:21 | ED_ITS ---
HPI - Psych <Elena Lopes MD - Last Filed: 09/09/24 18:49> General Chief Complaint: Psychiatric Symptoms Stated Complaint: mental health has a referel toget in stat Time Seen by Provider: 09/09/24 02:20 Source: patient Mode of arrival: Ambulatory History of Present Illness HPI Narrative: 34yoF with previous hx of alcohol use disorder presents for psychiatric evaluation. Patient seen in our ED 08/07/24 for abnormal mentation and bizarre behavior. She was in our ED nearly 2 days boarded under involuntary hold by [facility] before being accepted at psychiatric facility. told triage nurse that patient was discharged on multiple medications, which she has reportedly been taking as prescribed. Since yesterday patient has been behaving bizzarly and seeing things that aren't there. Patient is attempting to leave her room, stating that we're in her grandmother's room. Appears to be seeing things that aren't there Related Data Home Medications Medication Instructions Recorded Confirmed aripiprazole 10 mg tablet 10 mg PO DAILY 08/07/24 09/09/24 benztropine 1 mg tablet 1 mg PO Q12H PRN Tremor(S) 08/07/24 09/09/24 escitalopram oxalate 10 mg tablet 10 mg PO DAILY 08/07/24 09/09/24 quetiapine 50 mg tablet 100 mg PO BEDTIME anxiety 08/07/24 09/09/24 divalproex 500 mg tablet,extended 500 mg PO BEDTIME 09/09/24 09/09/24 release 24 hr hydroxyzine HCl 25 mg tablet 25 mg PO BID 09/09/24 09/09/24 prazosin 1 mg capsule 1 mg PO ONCE PM 09/09/24 09/09/24 Allergies Allergy/AdvReac Type Severity Reaction Status Date / Time fentanyl AdvReac Unknown Verified 08/07/24 17:53 hydromorphone [From Dilaudid] AdvReac Unknown Verified 08/07/24 17:53 Patient History <Elena Lopes MD - Last Filed: 09/09/24 18:49> Social History Smoking Status: Current every day smoker Smoking Status: Current every day smoker tobacco type: cigarettes alcohol intake frequency: a few times a week Exam <Elena Lopes MD - Last Filed: 09/09/24 18:49> Initial Vital Signs Initial Vital Signs: Vital Signs Temperature 97.4 F L 09/09/24 01:50 Pulse Rate 85 09/09/24 01:50 Respiratory Rate 17 09/09/24 01:50 Blood Pressure 112/75 09/09/24 01:50 Pulse Oximetry 100 09/09/24 01:50 Oxygen Delivery Method Room Air 09/09/24 01:50 Const: Awake, alert, no acute distress, nontoxic appearing Cardiac: regular rate, regular rhythm RESP: unlabored, clear bilaterally, no wheezing Skin: Warm, Dry, intact, no rashes Neuro: AO x2 (person, date), CN II-XII grossly intact, moves all extremities Psych: not suicidal, not homicidal. Well groomed, poor eye contact, appears to be responding to visual and auditory hallucinations <Sigifredo Ontiveros DO - Last Filed: 09/09/24 12:57> Initial Vital Signs Initial Vital Signs: Vital Signs Temperature 97.4 F L 09/09/24 01:50 Pulse Rate 85 09/09/24 01:50 Respiratory Rate 17 09/09/24 01:50 Blood Pressure 112/75 09/09/24 01:50 Pulse Oximetry 100 09/09/24 01:50 Oxygen Delivery Method Room Air 09/09/24 01:50 Course <Elena Lopes MD - Last Filed: 09/09/24 18:49> Orders Ordered: Discontinued Medications Acetaminophen (Acetaminophen 325 Mg Tablet) 650 mg PO NOW ONE Stop: 09/09/24 13:32 Haloperidol (Haloperidol 5 Mg/Ml Vial) 5 mg IM NOW ONE Stop: 09/09/24 02:34 Last Admin: 09/09/24 03:00 Dose: Not Given Documented By: Haloperidol (Haloperidol 5 Mg/Ml Vial) 10 mg IM NOW ONE Stop: 09/09/24 02:45 Last Admin: 09/09/24 02:55 Dose: 10 mg Documented By: Vital Signs Vital signs: Vital Signs - 8 hr 09/09/24 10:55 09/09/24 13:57 Respiratory Rate 16 77 H Blood Pressure 112/62 Pulse Oximetry 100 Oxygen Delivery Method Room Air <Sigifredo Ontiveros DO - Last Filed: 09/09/24 12:57> Orders Ordered: Discontinued Medications Acetaminophen (Acetaminophen 325 Mg Tablet) 650 mg PO NOW ONE Stop: 09/09/24 13:32 Haloperidol (Haloperidol 5 Mg/Ml Vial) 5 mg IM NOW ONE Stop: 09/09/24 02:34 Last Admin: 09/09/24 03:00 Dose: Not Given Documented By: AB Haloperidol (Haloperidol 5 Mg/Ml Vial) 10 mg IM NOW ONE Stop: 09/09/24 02:45 Last Admin: 09/09/24 02:55 Dose: 10 mg Documented By: AB Vital Signs Vital signs: Vital Signs - 8 hr 09/09/24 10:55 09/09/24 13:57 Respiratory Rate 16 77 H Blood Pressure 112/62 Pulse Oximetry 100 Oxygen Delivery Method Room Air MDM - Psych <Elena Lopes MD - Last Filed: 09/09/24 18:49> Differential Diagnosis Differential diagnosis: Likely acute psychosis, chronic schizophrenia and bipolar disorder Lab Data 09/09/24 03:08 09/09/24 03:08 Labs: Lab Results 09/09/24 09/09/24 09/09/24 Range/Units 02:28 02:28 03:08 WBC 4.4 L (4.5-11.0) X10^3/uL RBC 4.00 (4.0-5.2) X10^6/uL Hgb 8.4 L (12.0-16.0) g/dL Hct 27.3 L (36-46) % MCV 68.1 L (80-100) fL MCH 20.9 L (26-34) PG MCHC 30.7 (30-36) % RDW 19.3 H (11.6-14.8) % Plt Count 300 (150-400) X10^3/uL Neut % (Auto) 43.8 L (50-75) % Lymph % (Auto) 34.7 (25-40) % [place] % (Auto) 10.7 (3-14) % Eos % (Auto) 8.1 H (2-4) % Baso % (Auto) 2.7 H (0-2) % Neut # (Auto) 1900 (6903-0659) /uL Lymph # (Auto) 1500 (6379-6873) /uL [place] # (Auto) 500 (0-900) /uL Eos # (Auto) 400 (0-450) /uL Baso # (Auto) 100 (0-100) /uL Platelet Estimate Adequate on smear RBC Morphology See below Hypochromasia 1+ H Anisocytosis 1+ H Microcytosis 1+ H Sodium 136 L (137-145) mmol/L Potassium 3.9 (3.4-5.1) mmol/L Chloride 106 (98-107) mmol/L Carbon Dioxide 25 (22-32) mmol/L BUN 14 (7-17) mg/dL Creatinine 0.62 (0.52-1.04) mg/dL Estimated GFR > 60 (>60) mL/min BUN/Creatinine Ratio 22.6 H (6-22) Glucose 91 (70-100) mg/dL Calcium 8.8 (8.4-10.2) mg/dL Total Bilirubin 0.4 (0.2-1.3) mg/dL AST 26 (14-36) IU/L ALT 15 (<35) IU/L Alkaline Phosphatase 74 (38-126) U/L Total Protein 6.9 (6.3-8.2) g/dL Albumin 4.2 (3.5-5.0) g/dL Globulin 2.7 (1.7-4.1) g/dL Albumin/Globulin Ratio 1.6 (1.0-2.8) TSH 2.05 (0.47-4.68) uIU/mL Urine Color Yellow Urine Appearance Sl cloudy Urine pH 6.0 Normal (4.5-8.0) Ur Specific [place] 1.010 (1.000-1.035) Urine Protein Negative (Negative) Urine Glucose (UA) Negative (Negative) g/dL Urine Ketones Negative (NEGATIVE) Urine Occult Blood Trace-intact (Negative) Urine Nitrate Negative (Negative) Urine Bilirubin Negative (NEGATIVE) Urine Urobilinogen 0.2 (0.2) E.U./dL Ur Leukocyte Esterase 2+ H (NEGATIVE) Urine RBC None seen (0-5/HPF) Urine WBC 1-5/hpf (0-5/HPF) Ur Squamous Epith Cells 1-5 /hpf (0-5/HPF) Urine Bacteria Few (2-10) H (None) Ur Culture Indicated? Specimen cultured Vol Urine Centrifuged 10ml (spun) U Opiates 300ng/mL cut Negative (Negative) Ur Oxycodone Screen Negative (Negative) Urine Methadone Screen Negative (Negative) Acetaminophen < 10 (10-30) ug/mL Ur Barbiturates Screen Negative (Negative) U Tricyclic Antidepress Positive H (Negative) Ur Phencyclidine Scrn Negative (Negative) Ur Amphetamines Screen Negative (Negative) U Methamphetamines Scrn Negative (Negative) Ur MDMA Scrn (Ecstasy) Negative (Negative) U Benzodiazepines Scrn Negative (Negative) Urine Cocaine Screen Negative (Negative) U Marijuana (THC) Screen Negative (Negative) Urine Specific Crescent Normal (Normal) Ethyl Alcohol < 10 ( - 10) mg/dL Ur Creatinine Normal (Normal) MDM Narrative Medical decision making narrative: 1 day of bizarre behavior. Patient appears to be acting similarly to when she was 1st seen in our emergency department nearly 1 month ago. Not actively suicidal or homicidal, but not oriented, engaging with stimuli that it was not present, walking around and saying things like ?[place] in [place] the street? or ?this is my grandmother's room?. Laboratory work reviewed, no acute abnormalities identified. For psychomotor agitation patient was given Haldol, she was currently sleeping in bed, no acute distress. Plan to turn care over to patient to daytime physician and medical technician evaluation. <Sigifredo Ontiveros, DO - Last Filed: 09/09/24 12:57> Lab Data Labs: Lab Results 09/09/24 09/09/24 09/09/24 Range/Units 02:28 02:28 03:08 WBC 4.4 L (4.5-11.0) X10^3/uL RBC 4.00 (4.0-5.2) X10^6/uL Hgb 8.4 L (12.0-16.0) g/dL Hct 27.3 L (36-46) % MCV 68.1 L (80-100) fL MCH 20.9 L (26-34) PG MCHC 30.7 (30-36) % RDW 19.3 H (11.6-14.8) % Plt Count 300 (150-400) X10^3/uL Neut % (Auto) 43.8 L (50-75) % Lymph % (Auto) 34.7 (25-40) % [place] % (Auto) 10.7 (3-14) % Eos % (Auto) 8.1 H (2-4) % Baso % (Auto) 2.7 H (0-2) % Neut # (Auto) 1900 (6623-6624) /uL Lymph # (Auto) 1500 (0062-8109) /uL [place] # (Auto) 500 (0-900) /uL Eos # (Auto) 400 (0-450) /uL Baso # (Auto) 100 (0-100) /uL Platelet Estimate Adequate on smear RBC Morphology See below Hypochromasia 1+ H Anisocytosis 1+ H Microcytosis 1+ H Sodium 136 L (137-145) mmol/L Potassium 3.9 (3.4-5.1) mmol/L Chloride 106 (98-107) mmol/L Carbon Dioxide 25 (22-32) mmol/L BUN 14 (7-17) mg/dL Creatinine 0.62 (0.52-1.04) mg/dL Estimated GFR > 60 (>60) mL/min BUN/Creatinine Ratio 22.6 H (6-22) Glucose 91 (70-100) mg/dL Calcium 8.8 (8.4-10.2) mg/dL Total Bilirubin 0.4 (0.2-1.3) mg/dL AST 26 (14-36) IU/L ALT 15 (<35) IU/L Alkaline Phosphatase 74 (38-126) U/L Total Protein 6.9 (6.3-8.2) g/dL Albumin 4.2 (3.5-5.0) g/dL Globulin 2.7 (1.7-4.1) g/dL Albumin/Globulin Ratio 1.6 (1.0-2.8) TSH 2.05 (0.47-4.68) uIU/mL Urine Color Yellow Urine Appearance Sl cloudy Urine pH 6.0 Normal (4.5-8.0) Ur Specific [place] 1.010 (1.000-1.035) Urine Protein Negative (Negative) Urine Glucose (UA) Negative (Negative) g/dL Urine Ketones Negative (NEGATIVE) Urine Occult Blood Trace-intact (Negative) Urine Nitrate Negative (Negative) Urine Bilirubin Negative (NEGATIVE) Urine Urobilinogen 0.2 (0.2) E.U./dL Ur Leukocyte Esterase 2+ H (NEGATIVE) Urine RBC None seen (0-5/HPF) Urine WBC 1-5/hpf (0-5/HPF) Ur Squamous Epith Cells 1-5 /hpf (0-5/HPF) Urine Bacteria Few (2-10) H (None) Ur Culture Indicated? Specimen cultured Vol Urine Centrifuged 10ml (spun) U Opiates 300ng/mL cut Negative (Negative) Ur Oxycodone Screen Negative (Negative) Urine Methadone Screen Negative (Negative) Acetaminophen < 10 (10-30) ug/mL Ur Barbiturates Screen Negative (Negative) U Tricyclic Antidepress Positive H (Negative) Ur Phencyclidine Scrn Negative (Negative) Ur Amphetamines Screen Negative (Negative) U Methamphetamines Scrn Negative (Negative) Ur MDMA Scrn (Ecstasy) Negative (Negative) U Benzodiazepines Scrn Negative (Negative) Urine Cocaine Screen Negative (Negative) U Marijuana (THC) Screen Negative (Negative) Urine Specific Cres[place] Normal (Normal) Ethyl Alcohol < 10 ( - 10) mg/dL Ur Creatinine Normal (Normal) ECG Data Attestation: I personally reviewed and interpreted this ECG as follows: Interpretation: Sinus rhythm Ventricular rate is 64 Normal axis Normal QRS Normal QTC No ST T wave changes MDM Narrative Medical decision making narrative: 1 day of bizarre behavior. Patient appears to be acting similarly to when she was 1st seen in our emergency department nearly 1 month ago. Not actively suicidal or homicidal, but not oriented, engaging with stimuli that it was not present, walking around and saying things like ?we are in a college [place] the street? or ?this is my grandmother's room?. Laboratory work reviewed, no acute abnormalities identified. For psychomotor agitation patient was given Haldol, she was currently sleeping in bed, no acute distress. Plan to turn care over to patient to daytime physician and medical technician evaluation. Dr Ontiveros: Received turned. Review patient's history and physical. Patient has been medically cleared. Has been seen by social work and cleared to be discharge. Patient's was able to establish a primary doctor visit tomorrow and also a mental health provider appointment for tomorrow. Discharge patient to family. Discharge Plan Departure Patient Disposition: Home Clinical Impression: Altered behavior Activity Restrictions/Additional Instructions: Continue to take all of your medications as directed. Keep your scheduled appointments with both your primary doctor and your mental health provider tomorrow. Return to the emergency department for new symptoms. Prescriptions: No Action quetiapine 50 mg tablet 100 mg PO BEDTIME aripiprazole 10 mg tablet 10 mg PO DAILY benztropine 1 mg tablet 1 mg PO Q12H PRN (Reason: Tremor(S)) escitalopram oxalate 10 mg tablet 10 mg PO DAILY hydroxyzine HCl 25 mg tablet 25 mg PO BID prazosin 1 mg capsule 1 mg PO ONCE PM divalproex 500 mg tablet extended release 24 hr 500 mg PO BEDTIME Referrals: ProviderWhitley [Primary Care Provider] - Stand Alone Forms: Patient Portal/API/Survey
[2024-09-09] MEDS: HALOPERIDOL 5 MG/ML VIAL 10 MG IM (02:55)
[2024-09-09 03:21] LABS: Bilirubin Urine UA NEGATIVE (NEGATIVE); Color Urine UA YELLOW; Glucose Urine UA NEGATIVE (Negative); Ketones Urine UA NEGATIVE (NEGATIVE); Leukocyte Esterase Urine UA 2+ (NEGATIVE); Nitrite Urine UA NEGATIVE (Negative); Occult Blood Urine UA TRACE-INTACT (Negative); Protein Urine UA NEGATIVE (Negative); Urobilinogen Urine UA 0.2 E.U./dL (0.2)
[2024-09-09 03:22] LABS: Add Manual Diff / Slide Review NO; Basophils Absolute Auto 100 /uL (0-100); Basophils Percent Auto 2.7 % (0-2); Eosinophils Absolute Auto 400 /uL (0-450); Eosinophils Percent Auto 8.1 % (2-4); Hematocrit 27.3 % (36-46); Hemoglobin 8.4 g/dL (12.0-16.0); Lymphocytes Absolute Auto 1500 /uL (1100-4500); Lymphocytes Percent Auto 34.7 % (25-40); Mean Corpuscular HGB Conc 30.7 % (30-36); Mean Corpuscular Hemoglobin 20.9 PG (26-34); Mean Corpuscular Volume 68.1 fL (80-100); Monocytes Absolute Auto 500 /uL (0-900); Monocytes Percent Auto 10.7 % (3-14); Neutrophils Absolute Auto 1900 /uL (1500-7000); Neutrophils Percent Auto 43.8 % (50-75); Platelet Count 300 X10^3/uL (150-400); Red Cell Distribution Width 19.3 % (11.6-14.8); White Blood Cell Count 4.4 X10^3/uL (4.5-11.0)
[2024-09-09 03:26] LABS: UR Morphine/Opiate cutoff 300 Negative (Negative); Ur Creatinine Normal (Normal); Ur Specific Gravity Normal (Normal); Urine Amphetamines Negative (Negative); Urine Barbiturates Negative (Negative); Urine Benzodiazepines Negative (Negative); Urine Cocaine Negative (Negative); Urine MDMA Negative (Negative); Urine Methadone Negative (Negative); Urine Methamphetamines Negative (Negative); Urine Oxycodone Negative (Negative); Urine Phencyclidine Negative (Negative); Urine Tetrahydrocannabinol Negative (Negative); Urine Tricyclic Antidepressant Positive (Negative); Urine pH Normal (Normal)
[2024-09-09 03:33] LABS: Appearance Urine UA SL CLOUDY; RBC Urine None Seen (0-5/HPF); Urine Volume 10mL (spun)
[2024-09-09 03:34] LABS: Bacteria Urine Few (2-10); Culture Indicated Urine Specimen Cultured; Squamous Epithelial Cell Urine 1-5 /HPF (0-5/HPF); WBC Urine 1-5/HPF (0-5/HPF)
[2024-09-09 03:34] LABS: Acetaminophen < 10 ug/mL (10-30); Alanine Aminotransferase 15 IU/L (<35); Albumin 4.2 g/dL (3.5-5.0); Albumin Globulin Ratio 1.6 (1.0-2.8); Alkaline Phosphatase 74 U/L (38-126); Aspartate Aminotransferase 26 IU/L (14-36); BUN Creatinine Ratio 22.6 (6-22); Bilirubin Total 0.4 mg/dL (0.2-1.3); Blood Urea Nitrogen 14 mg/dL (7-17); Calcium 8.8 mg/dL (8.4-10.2); Carbon Dioxide 25 mmol/L (22-32); Chloride 106 mmol/L (98-107); Estimated Glomerular Filt Rate > 60 mL/min (>60); Ethanol (ETOH) < 10 mg/dL; Globulin 2.7 g/dL (1.7-4.1); Glucose 91 mg/dL (70-100); HEMOLYSIS < 15 (0-50); Potassium 3.9 mmol/L (3.4-5.1); Sodium 136 mmol/L (137-145); Total Protein 6.9 g/dL (6.3-8.2)
[2024-09-09 03:49] LABS: Anisocytosis 1+; Hypochromasia 1+; Microcytosis 1+; Platelet Estimate Adequate on smear
--- NOTE | 2024-09-09 04:00 | PC.NURSE ---
Pt appears to be sleeping, chest rising and falling, light snoring. Placed warm blanket on her at this time.
[2024-09-09 04:25] LABS: TSH w/ Reflex to FT4 2.05 uIU/mL (0.47-4.68)
--- NOTE | 2024-09-09 07:10 | PC.NURSE ---
Gave verbal update to Wayne. Will have WAREHOUSE ASSISTANT call later in day for update.
--- NOTE | 2024-09-09 07:40 | EKG_ITS ---
[address] [address] Test Date: 2024-09-09 Pat Name: Key Douglass Department: [facility] Room: Gender: Female Diamond Cleaner: SIRIA : 1990 Requested By: Order Number: [id number] Reading MD: Darren Gordon Measurements Intervals Hale Rate: 64 P: 58 WA: 160 QRS: 26 QRSD: 88 T: 43 QT: 430 QTc: 443 Interpretive Statements Normal sinus rhythm Cannot rule out Anterior infarct , age undetermined Electronically Signed On 09-09-2024 14:50:13 PST by Darren Gordon
[2024-09-09 08:10] VITALS: RESP 18
--- NOTE | 2024-09-09 08:53 | PC.NURSE ---
Edel Ortiz calls stating she is pt's mother and would like an update. I informed Edel she is not listed on pt's contacts and that I could not provide further information until I could verify with pt that it is ok to talk to Edel about pt's care. Edel expressed understanding and asks if she gets a moment of clarity would you please ask her to allow me to be updated. I told Edel I would talk with pt when appropriate. Edel states she cant be taking that seroquel, that sh*t killed lots of people back in the day. I told Edel I would follow up on her request to be added as a contact to pt's list. Phone call ended.
[2024-09-09 10:55] VITALS: RESP 16
--- NOTE | 2024-09-09 13:06 | CM.SWNOTE ---
ED MOLDER SWEEP Note: Patient is a 34yo female, resident of [place], presented to the ED with her spouse due to suspected hallucinations. Patient's primary care provider is Yuridia Shanks NP and insurance is [employer]. Patient had a previous YENNI placement at [facility] on 08/09/2024 for a week and was released home. ED MOLDER SWEEP reviewed chart and discussed pt with ED staff. Per RN, pt's , Wayne, was able to coordinate PCP and Psych appt tomorrow if pt can be cleared to discharge home. ED MOLDER SWEEP entered room and introduced self and role. Patient confirms living situation and motivation to return home. Pt confirmed that she will be able to follow up with appointments set for tomorrow. Pt denies SI/HI and denies any hallucinations at this time. Patient explains she has started seeing a therapist at the [facility] and contracts for safety with discharge plans. ED MOLDER SWEEP called pt , Wayne, and discussed above plans and agrees. He is en route to transport pt home at 1330. ED MOLDER SWEEP provided [facility] and crisis line information to be presented at [facility]. Plan: Pt will discharge home with Wayne, and follow up with PCP and Psychiatrist tomorrow, 09/10 at 12:30pm and 1:00pm, respectively. OCTAVIO Santana
[2024-09-09 13:57] VITALS: BP 112/62; RESP 77; O2SAT 100
== END 2024-09-09 13:56 | disposition home or self-care (01) ==
PROVIDERS: Emergency Medicine; Emergency Provider Emergency Medicine
DX: R46.89 Other symptoms and signs involving appearance and behavior (principal); R07.9 Chest pain, unspecified
CPT/HCPCS: 36415; 80053; 80305; 80320; 80329; 81001; 84443; 85025; 87086; 93005; 96372; 99284; G0480; J1630

== ENCOUNTER 2024-11-29 22:11 | Emergency (ER) | payer OTHER, SELFPAY ==
[2024-11-29 22:15] VITALS: BP 117/66; PULSE 105; RESP 24; TEMP 36.3; O2SAT 96; BMI 29.0
[2024-11-29 23:01] LABS: Bacteria Urine Few (2-10); RBC Urine 0-1/HPF (0-5/HPF); Squamous Epithelial Cell Urine 0-1 /HPF (0-5/HPF); Urine Volume 10mL (spun); WBC Urine 1-5/HPF (0-5/HPF)
[2024-11-29 23:02] LABS: Culture Indicated Urine Specimen Cultured
[2024-11-29] MEDS: ONDANSETRON 4 MG/2 ML INJ IV (23:04)
[2024-11-29] MEDS: KETOROLAC 30 MG/ML VIAL 15 MG IV (23:04)
[2024-11-29 23:08] LABS: Add Manual Diff / Slide Review NO; Basophils Absolute Auto 0 /uL (0-100); Basophils Percent Auto 0.7 % (0-2); Eosinophils Absolute Auto 300 /uL (0-450); Eosinophils Percent Auto 6.2 % (2-4); Hematocrit 27.9 % (36-46); Hemoglobin 8.5 g/dL (12.0-16.0); Lymphocytes Absolute Auto 2000 /uL (1100-4500); Mean Corpuscular HGB Conc 30.4 % (30-36); Mean Corpuscular Hemoglobin 21.2 PG (26-34); Mean Corpuscular Volume 69.6 fL (80-100); Monocytes Absolute Auto 500 /uL (0-900); Neutrophils Absolute Auto 1900 /uL (1500-7000); Neutrophils Percent Auto 41.1 % (50-75); Platelet Count 353 X10^3/uL (150-400); Red Blood Cell Count 4.01 X10^6/uL (4.0-5.2); Red Cell Distribution Width 17.2 % (11.6-14.8); White Blood Cell Count 4.7 X10^3/uL (4.5-11.0)
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
[2024-11-29 23:22] LABS: Alanine Aminotransferase 16 IU/L (<35); Albumin Globulin Ratio 1.5 (1.0-2.8); Alkaline Phosphatase 71 U/L (38-126); Aspartate Aminotransferase 28 IU/L (14-36); BUN Creatinine Ratio 29.7 (6-22); Bilirubin Total 0.3 mg/dL (0.2-1.3); Blood Urea Nitrogen 19 mg/dL (7-17); Calcium 8.4 mg/dL (8.4-10.2); Carbon Dioxide 15 mmol/L (22-32); Chloride 113 mmol/L (98-107); Estimated Glomerular Filt Rate > 60 mL/min (>60); Globulin 2.6 g/dL (1.7-4.1); Glucose 91 mg/dL (70-100); HEMOLYSIS < 15 (0-50); Lipase 47 U/L (23-300); Potassium 3.7 mmol/L (3.4-5.1); Sodium 141 mmol/L (137-145); Total Protein 6.6 g/dL (6.3-8.2)
--- NOTE | 2024-11-29 23:38 | DI.CT.S_ITS ---
PROCEDURE: CT ABDOMEN PELVIS W CON INDICATIONS: abd pain, hx bowel obstructions, +n, normal BM TECHNIQUE: After the administration of intravenous contrast, axial sections acquired from the lung bases to the pubic symphysis. Coronal and sagittal reformats were performed. For radiation dose reduction, the following was used: automated exposure control, adjustment of mA and/or kV according to patient size. COMPARISON: [facility], CT, CT ABDOMEN PELVIS W CON, 07/07/2024, 20:50. FINDINGS: Image quality: Diagnostic Lower chest: Unremarkable lung bases Partially seen breast implants. Mildly patulous distal esophagus. Liver: Unremarkable Gallbladder and biliary system: Mildly distended gallbladder without radiopaque stones. Nondilated biliary cyst Pancreas: Mildly ectatic pancreatic duct at the head, similar to prior. No focal mass identified Spleen: Nonenlarged Adrenals: No discrete nodules Kidneys: No solid mass. No hydronephrosis. Vessels and lymph nodes: The main portal vein is patent. No abdominal aortic aneurysm. No pathologic lymphadenopathy by size criteria. Bowel and peritoneum: Keturah-en-Y gastric bypass changes. No evidence of small bowel obstruction. There is moderate to large fecal loading. No drainable abscess or ascites Body wall: Unremarkable Pelvis: Bladder appears unremarkable. Malpositioned IUD. Adnexal structures appear unremarkable on limited CT evaluation Bones: No acute displaced fracture or traumatic subluxation of the lumbar spine. IMPRESSION: Moderate to large fecal loading. No small bowel obstruction. Malpositioned IUD again seen Other stable and incidental findings above. Dictated by: Kiran Fish M.D. on 11/30/2024 at 0:21 Approved by: Kiran Fish M.D. on 11/30/2024 at 0:26
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
[2024-11-29 23:42] LABS: Anisocytosis 1+; Microcytosis 1+; Platelet Estimate Adequate on smear
[2024-11-29] MEDS: SODIUM CHLORIDE 0.9% 1,000 ML 1000 ML IV (23:47)
[2024-11-29] MEDS: MORPHINE 4 MG/ML INJ IV (23:47)
[2024-11-30 00:13] LABS: Ethanol (ETOH) 130 mg/dL
[2024-11-30] MEDS: MORPHINE 2 MG/ML INJ IV (01:11)
[2024-11-30] MEDS: cephALEXin 250 MG CAPSULE 500 MG PO (01:11)
[2024-11-30 01:18] VITALS: BP 113/55; PULSE 88; RESP 16; O2SAT 98
== END 2024-11-30 01:32 | disposition home or self-care (01) ==
PROVIDERS: Emergency Provider Emergency Medicine
DX: N39.0 Urinary tract infection, site not specified (principal); T83.32XA Displacement of intrauterine contraceptive device, initial encounter
CPT/HCPCS: 36415; 73030; 74177; 80053; 80320; 81003; 81015; 81025; 83690; 85025; 87086; 96361; 96374; 96375; 96376; 99284; J1885; J2270; J2405; Q9967